=== PATIENT | female | born 1940 | race Two or more races ===

== ENCOUNTER 2024-11-03 16:56 | Inpatient (IN) | payer OTHER, MEDICAID ==
[~2024-11-03] VITALS: Ht 167.6 cm; Wt 72.7 kg
--- NOTE | 2024-11-03 17:23 | ED.PDOC ---
History of present illness HPI Comments 84 y.o female with PMhx of dementia, presents to the ED via EMS for an evaluation of hypoglycemia. EMS reports family on scene noted patient to be lethargic, tested her glucose which read 29, gave her juice and called 911. EMS reports on scene, glucose read 52, gave patient oral glucose which level remained at 50. EMS then administrated 250mL of D10 en route and now presents to the ED with glucose of 126. Patient's baseline is alert and oriented x3. EMS reports patient was more talkative on scene per EMS, slurred speech due to weakness but upon ED arrival, is not answering many questions and mumbling. Chief Complaint: Hypoglycemia Time Seen by MD: 17:17 History of present illness: Nurses Notes, Payroll And Benefits Specialist Notes, Medications, Allergies Allergies: Coded Allergies: NO KNOWN ALLERGIES (Unverified , 11/03/24) Information Source: Emergency Med Personnel Mode of Arrival: EMS Timing: Hours Duration: Since onset Prehospital treatment: Accucheck, Treatment [place]: Slurred speech Symptoms: Confusion Modifying factors: Nothing Associated signs and symptoms: None Past Medical History PAST MEDICAL HISTORY: Denies Surgical History: Denies all surgeries TRACTOR SWEEPER OPERATOR History: No Pertinent TRACTOR SWEEPER OPERATOR History Family History Family History: Reviewed,noncontributory to illness, No family hx of Cancer, No family hx of DM, No family hx of Heart jero, No family hx of HTN, No family hx ofKidney jero, No family hx of Liver jero, No family hx of Lung jero, No family hx of Stroke Social History Smoker: Non-Smoker Alcohol: Denies ETOH Use Drugs: Denies Drug Use Lives In: Home Constitutional: denies: chills, diaphoresis, fatigue, fever, malaise, sweats, weakness, others EENTM: denies: blurred vision, double vision, ear bleeding, ear discharge, ear drainage, ear pain, ear ringing, eye pain, eye redness, hearing loss, mouth pain, mouth swelling, nasal discharge, nose bleeding, nose congestion, nose pain, photophobia, tearing, throat pain, throat swelling, voice changes, others Respiratory: denies: cough, hemoptysis, orthopnea, SOB at rest, shortness of breath, SOB with excertion, stridor, wheezing, others Cardiovascular: denies: chest pain, dizzy spells, diaphoresis, Dyspnea on exertion, edema, irregular heart beat, left arm pain, lightheadedness, palpitations, PND, syncope, others Gastrointestinal: denies: abdomen distended, abdominal pain, blood streaked bowels, constipated, diarrhea, dysphagia, difficulty swallowing, hematemesis, melena, nausea, poor appetite, poor fluid intake, rectal bleeding, rectal pain, vomiting, others Genitourinary: denies: abnormal vagina bleeding, burning, dyspareunia, dysuria, flank pain, frequency, hematuria, incontinence, pain, , vagina discharge, urgency, others Neurological: denies: dizziness, fainting, headache, left sided numbness, left sided weakness, numbness, paresthesia, pre-existing deficit, right sided nu mbness, right sided weakness, seizure, speech problems, tingling, tremors, weakness, others Musculoskeletal: denies: back pain, gout, joint pain, joint swelling, muscle pain, muscle stiffness, neck pain, others Integumetry: denies: bruises, change in color, change in hair/nails, dryness, laceration, lesions, lumps, rash, wounds, others Allergic/Immunocompromised: denies: Difficulty Healing, Frequent Infections, Hives, Itching, others Hematologic/Lymphatic: denies: anemia, blood clots, easy bleeding, easy bruising, swollen glands, others Endocrine: denies: excessive hunger, excessive sweating, excessive thirst, excessive urination, flushing, intolerance to cold, intolerance to heat, unexplained weight gain, unexplained weight loss, others Psychiatric: denies: anxiety, bipolar disorder, depression, hopeless, panic disorder, schizophrenia, sleepless, suicidal, others All Other Systems: Reviewed and Negative Physical Exam General Appearance: Moderate Distress HEENT: Normal ENT Inspection, Pharynx Normal Neck: Full Range of Motion, Non-Tender, Normal, Normal Inspection Respiratory: Chest Non-Tender, Lungs Clear, No Accessory Muscle Use, No R espiratory Distress, Normal Breath Sounds Cardiovascular: No Edema, No JVD, No Murmur, No Gallop, Normal Peripheral Pulses, Regular Rate/Rhythm Breast Exam: Deferred Gastrointestinal: No Organomegaly, Non Tender, No Pulsatile Mass, Normal Bowel Sounds, Soft Genitalia: Deferred Pelvic: Deferred Rectal: Deferred Extremities: No calf tenderness, Normal capillary refill, Normal inspection, Normal range of motion, Non-tender, No pedal edema Neurologic: Alert, dietitian teaching II-XII nml as Tested, No Motor Deficits Cerebellar Function: NOT DONE Reflexes: NOT DONE Skin: Dry, Normal Color, Warm Lymphatic: NOT DONE Was a procedure done? Was a procedure done?: No Differential Diagnosis (DM) Differential Diagnosis: Dehydration, Electrolyte Abnormality, Hypoglycemia X-Ray, Labs, Meds, VS Vital Signs Date Time Temp Pulse Resp B/P (MAP) Pulse Ox O2 Delivery O2 Flow Rate FiO2 11/03/24 18:28 Room Air* 0 21 11/03/24 18:00 97.3 77 16 168/52 (90) 93 97.3 11/03/24 17:00 97.9 81 18 134/75 (94) 98 Lab Test 11/03/24 19:32 11/03/24 19:28 11/03/24 18:50 11/03/24 17:57 Range/Units Troponin I High Sensitivity Pending POC Glucose 81 106 70-106 mg/dl Urine Color Light-orange Yellow Urine Clarity Turbid H Clear Urine pH 6.5 5.0-9.0 Urine Specific [place] 1.013 1.001-1.035 Urine Protein 1+ H Negative Urine Ketones Negative Negative Urine Blood Negative Negative /uL Urine Nitrite Negative Negative Urine Bilirubin Negative Negative Urine Urobilinogen Normal Negative mg/dL Urine Leukocyte Esterase 3+ Negative /uL Urine RBC 1 0 - 4 /hpf Urine WBC 209 0 - 5 /hpf Urine WBC Clumps Present None Seen /hpf Urine Squamous Epithelial Cells Few <5 /hpf Urine Bacteria Few H None Seen /hpf Urine Hyaline Casts Few 0 - 2 /lpf Urine Glucose Normal Normal mg/dL Test 11/03/24 17:39 Range/Units White Blood Count 13.6 H 4.4-10.8 10^3/uL Red Blood Count 5.01 4.0-5.20 10^6/uL Hemoglobin 14.6 12.2-16.2 g/dL Hematocrit 44.6 36.0-46.0 % Mean Corpuscular Volume 89.2 80.0-100.0 fL Mean Corpuscular Hemoglobin 29.1 28.0-32.0 pg Mean Corpuscular Hemoglobin Concent 32.6 32.0-36.0 g/dL Red Cell Distribution Width 15.3 H 11.8-14.3 % Platelet Count 215 140-450 10^3/uL Mean Platelet Volume 8.2 6.9-10.8 fL Neutrophils (%) (Auto) 80.7 H 37.0-80.0 % Lymphocytes (%) (Auto) 4.5 L 10.0-50.0 % Monocytes (%) (Auto) 13.9 H 0.0-12.0 % Eosinophils (%) (Auto) 0.3 0.0-7.0 % Basophils (%) (Auto) 0.6 0.0-2.0 % Neutrophils # (Auto) 10.9 H 1.6-8.6 10 ^3/uL Lymphocytes # (Auto) 0.6 0.4-5.4 10 ^3/uL Monocytes # (Auto) 1.9 H 0-1.3 10 ^3/uL Eosinophils # (Auto) 0 0-0.8 10 ^3/uL Basophils # (Auto) 0.1 0-0.2 10 ^3/uL Nucleated Red Blood Cells 0.1 % Prothrombin Time 12.1 H 9.3-11.8 sec Prothrombin Time INR 1.16 H 0.9-1.15 Activated Partial Thromboplast Time 29.3 24.5-34.5 SEC D-Dimer, Quantitative 0.47 0.0-0.49 mg/L FEU Sodium Level 140 136-145 mmol/L Potassium Level 2.6 L 3.5-5.1 mmol/L Chloride Level 103 98-107 mmol/L Carbon Dioxide Level 29 20-31 mmol/L Anion Gap 8 5-15 Blood Urea Nitrogen 9 9-23 mg/dL Creatinine 0.79 0.550-1.02 mg/dL Glomerular Filtration Rate Calc 74 >90 mL/min BUN/Creatinine Ratio 11.4 10.0-20.0 Serum Glucose 122 H 74-106 mg/dL Calcium Level 11.3 H 8.7-10.4 mg/dL Magnesium Level 1.5 L 1.6-2.6 mg/dL Total Bilirubin 0.8 0.2-1.0 mg/dL Aspartate Amino Transferase (AST) 20 13-40 U/L Alanine Aminotransferase (ALT) < 9 7-40 U/L Alkaline Phosphatase 100 46-116 U/L Troponin I High Sensitivity 15 </=34 ng/L B-Type Natriuretic Peptide 45.72 0-100 pg/mL Total Protein 6.6 5.7-8.2 g/dL Albumin 4.1 3.2-4.8 g/dL Current Medications Medications (Trade) Dose Ordered Sig/Evelyn Route Start Time Stop Time Status Last Admin Dextrose/Lactated Ringer's 1,000 ml @ 75 mls/hr [id number] ONCE IV 11/03/24 17:30 11/04/24 06:49 11/03/24 18:00 X-Ray, Labs, Meds, VS Comment This 84-year-old female was sent to our hospital via EMS secondary to being altered. Family noted the patient had a blood glucose of 29. She had provided with glucose in the field with improvement of symptoms. Here, her she had became hypersomnolent provide more glucose. Her workup and he was significant only for chronic appearing ischemic changes on CT, and hypoglycemia. She was placed on a D5 drip at 75 cc/hour monitored. However, secondary to altered mental status, hypoglycemia, she will be admitted for further workup and management. Time of 1ST Reevaluation: 17:08 Reevaluation 1ST: Unchanged Patient Education/Counseling: Diagnosis, Treatment, Prognosis Family Education/Counseling: No Family Present Departure 1 Departure Time of Disposition: 19:52 Impression: Primary Impression: Altered mental status Additional Impression: Hypoglycemia Disposition: ADMITTED INPATIENT Condition: Serious Critical Care Note Critical Care Time?: No Stability Stability form required: No I personally scribed for JAIDA KHAN MD ([email or web address]) on 11/03/24 at 17:23. E lectronically submitted by Christy Finnegan ([facility]). I personally scribed for JAIDA KHAN MD ([email or web address]) on 11/03/24 at 17:26. Elect ronically submitted by Christy Finnegan ([facility]). JAIDA KHAN MD Nov 03, 2024 17:23
[2024-11-03 17:47] LABS: Basophils # (auto) 0.1 10 ^3/uL (0-0.2); Basophils % (auto) 0.6 % (0.0-2.0); Eosinophils # (auto) 0 10 ^3/uL (0-0.8); Eosinophils % (auto) 0.3 % (0.0-7.0); Hematocrit 44.6 % (36.0-46.0); Hemoglobin 14.6 g/dL (12.2-16.2); Lymphocytes # (auto) 0.6 10 ^3/uL (0.4-5.4); Lymphocytes % (auto) 4.5 % (10.0-50.0); Mean Corpuscular Hemoglobin 29.1 pg (28.0-32.0); Mean Corpuscular Hgb Conc. 32.6 g/dL (32.0-36.0); Mean Corpuscular Volume 89.2 fL (80.0-100.0); Monocytes # (auto) 1.9 10 ^3/uL (0-1.3); Monocytes % (auto) 13.9 % (0.0-12.0); Neutrophils # (auto) 10.9 10 ^3/uL (1.6-8.6); Neutrophils % (auto) 80.7 % (37.0-80.0); Nucleated Red Blood Cells % 0.1 %; Platelet Count (auto) 215 10^3/uL (140-450); Red Blood Cells 5.01 10^6/uL (4.0-5.20); Red Cell Distribution Width 15.3 % (11.8-14.3); White Blood Cell 13.6 10^3/uL (4.4-10.8)
[2024-11-03] MEDS: D5W/LACTATED RINGERS 1,000 ML IV ONE (18:00)
[2024-11-03 18:07] LABS: Albumin 4.1 g/dL (3.2-4.8); Alkaline Phosphatase 100 U/L (46-116); Anion Gap 8 (5-15); Aspartate Aminotransferase 20 U/L (13-40); BUN/Creatinine Ratio 11.4 (10.0-20.0); Bilirubin, Total 0.8 mg/dL (0.2-1.0); Carbon Dioxide 29 mmol/L (20-31); Chloride 103 mmol/L (98-107); Sodium 140 mmol/L (136-145); Total Protein 6.6 g/dL (5.7-8.2)
[2024-11-03 18:08] LABS: Alanine Aminotransferase < 9 U/L (7-40); Blood Urea Nitrogen 9 mg/dL (9-23); Calcium 11.3 mg/dL (8.7-10.4); Glucose 122 mg/dL (74-106); Magnesium 1.5 mg/dL (1.6-2.6); Potassium 2.6 mmol/L (3.5-5.1)
[2024-11-03 18:12] LABS: INR 1.16 (0.9-1.15); Partial Thromboplastin Time 29.3 SEC (24.5-34.5); Prothrombin Time 12.1 sec (9.3-11.8)
--- NOTE | 2024-11-03 18:30 | DVH ---
EXAM: CT HEAD WITHOUT CONTRAST INDICATION: aloc TECHNIQUE: CT of the head without intravenous contrast. Radiation Dose Information: CT Dose: CTDI volume is 54.83 mGy. Dose-length product is 878.97 mGy*cm The dose indicators for CT are the volume Computed Tomography (CT) Dose Index (CTDIvol) and the Dose Length Product (DLP), and are measured in units of mGy and mGy-cm, respectively. These indicators are not patient dose, but values generated from the CT scanner acquisition factors. The report includes radiation exposure data for exposures received during this examination. COMPARISON: None FINDINGS: There is no evidence of acute intracranial hemorrhage, extra-axial collection, mass effect, midline s hift, herniation or hydrocephalus. Small 6-7 mm low-density area in the deep white matter of the right frontal lobe 9 mm low-density are a in the deep white matter in the left parietal lobe. These may represent old areas of ischemia. Cons ider follow-up with MRI. The ventricles, sulci and cisterns are age appropriate. The rothman-white differentiation is intact. Patchy periventricular and subcortical white matter hypoattenuation is nonspecific but may be related to small vessel ischemic disease. Small area of mucosal thickening left maxillary sinus. The mastoid air cells are clear. The surrounding soft tissues and osseous structures are unremarkable. IMPRESSION: 1. No acute intracranial hemorrhage. 2. Bilateral small areas of ischemia in the deep white matter consider follow-up with MRI. HS:Y
--- NOTE | 2024-11-03 18:44 | DVH ---
CHEST RADIOGRAPH Indication: aloc Technique: Single frontal view of the chest was obtained COMPARISON: None FINDINGS: Lines and Tubes: None Lungs: Clear Pleura: No effusion. No pneumothorax. Cardiomediastinal contours: Cardiomegaly Bones: Unremarkable IMPRESSION: Cardiomegaly
[2024-11-03 19:00] LABS: Urine Bacteria FEW /hpf (None Seen); Urine Blood Negative /uL (Negative); Urine Clarity Turbid (Clear); Urine Color Light-Orange (Yellow); Urine Hyaline Cast FEW /lpf (0 - 2); Urine Protein, UAD 1+ (Negative); Urine Specific Gravity 1.013 (1.001-1.035); Urine Squamous Epithelial Cell FEW /hpf (<5); Urine Urobilinogen Normal (Negative); Urine WBC 209 /hpf (0 - 5); Urine WBC Clumps PRESENT /hpf (None Seen); Urine pH 6.5 (5.0-9.0)
[2024-11-03 19:30] VITALS: PULSE 72; RESP 17; O2SAT 93
[2024-11-03] MEDS: ACCU-CHEK COMFORT CURVE STRIP VI ONE (20:57)
[2024-11-03] MEDS: DEXTROSE (50%) 50ML SYRG IV ONE (21:15)
[2024-11-03] MEDS ORDERED: DEXTROSE (50%) 50ML SYRG IV PRN (21:30)
[2024-11-03] MEDS ORDERED: ACETAMINOPHEN 325 MG TAB PO PRN (21:30)
--- NOTE | 2024-11-03 21:51 | DVHHP2 ---
History of Present Illness Reason for Visit: Altered mental status History of Present Illness 84-year-old female presents evaluation altered mental status. Patient was noted to be progressively more confused by caregiver today. When they checked her blood sugar it was reading 29. Patient does have history of dementia and can not provide history of events. Patient is lethargic. No complaints of shortness for breath or chest pain. Past Medical History Diabetes mellitus and dementia Past Surgical History None Family History Noncontributory Smoke: No ALCOHOL: none Drugs: None Review of Systems Review of Systems Review of systems are limited due to the patient's altered mental status. Allergies: Coded Allergies: NO KNOWN ALLERGIES (Unverified , 11/03/24) Medications Current Medications Medications Dose Ordered Sig/Evelyn Route Start Time Stop Time Status Last Admin Dose Admin Potassium Chloride 100 ml @ 50 mls/hr Q2H IV 11/03/24 20:45 11/04/24 00:44 Lisinopril 10 mg DAILY PO 11/04/24 10:00 UNV Ceftriaxone Sodium 50 ml @ 100 mls/hr DAILY@09 IV 11/04/24 09:00 UNV Magnesium Sulfate/ Dextrose 100 ml @ 100 mls/hr Q1H IV 11/03/24 21:30 11/03/24 23:29 UNV Diagnostic Test (Pha) 1 strip IQ4HR 11/04/24 00:00 UNV Insulin Human Regular IQ4HR SC 11/04/24 00:00 UNV Dextrose 50 ml UD PRN IV 11/03/24 21:30 UNV Ondansetron HCl 4 mg Q4HP PRN IV 11/03/24 21:30 UNV Enoxaparin Sodium 40 mg DAILY SC 11/04/24 10:00 UNV Acetaminophen 650 mg Q6HP PRN PO 11/03/24 21:30 UNV Exam Vital Signs Vital Signs Date Time Temp Pulse Resp B/P (MAP) Pulse Ox O2 Delivery O2 Flow Rate FiO2 11/03/24 18:28 Room Air* 0 21 11/03/24 18:00 97.3 77 16 168/52 (90) 93 97.3 Exam Gen: 84-year-old female in mild distress. Skin: Warm, dry, normal color and texture, no rash. HEENT: Normocephalic atraumatic, mucous membranes moist and pink. Neck: Cervical and supraclavicular nodes normal without enlargement, trachea is midline, thyroid gland is normal without masses. Pulmonary: Clear to auscultation and percussion bilaterally. Cardiac: Regular rate and rhythm. No murmur Abdomen: Soft, nontender, nondistended, bowel sounds present all 4 quadrants, no guarding, no rigidity, no organomegaly. Extremities: No cyanosis, clubbing, no edema Neuro: Cranial nerves II through XII grossly intact, normal affect and speech, no focal motor deficits. Labs/Xrays ORDERING PHYSICIAN: JAIDA KHAN MD PROCEDURE(s): CXRP - CHEST PORTABLE REASON: aloc ORDER NUMBER(s): [id number], ACCESSION NUMBER(s): [id number] CHEST RADIOGRAPH Indication: aloc Technique: Single frontal view of the chest was obtained COMPARISON: None FINDINGS: Lines and Tubes: None Lungs: Clear Pleura: No effusion. No pneumothorax. Cardiomediastinal contours: Cardiomegaly Bones: Unremarkable IMPRESSION: Cardiomegaly RING PHYSICIAN: JAIDA KHAN MD PROCEDURE(s): HWOCT - HEAD WITHOUT CONTRAST REASON: aloc ORDER NUMBER(s): [id number], ACCESSION NUMBER(s): [id number] EXAM: CT HEAD WITHOUT CONTRAST INDICATION: aloc TECHNIQUE: CT of the head without intravenous contrast. Radiation Dose Information: CT Dose: CTDI volume is 54.83 mGy. Dose-length product is 878.97 mGy*cm The dose indicators for CT are the volume Computed Tomography (CT) Dose Index (CTDIvol) and the Dose Length Product (DLP), and are measured in units of mGy and mGy-cm, respectively. These indicators are not patient dose, but values generated from the CT scanner acquisition factors. The report includes radiation exposure data for exposures received during this examination. COMPARISON: None FINDINGS: There is no evidence of acute intracranial hemorrhage, extra-axial collection, mass effect, midline shift, herniation or hydrocephalus. Small 6-7 mm low-density area in the deep white matter of the right frontal lobe 9 mm low-density area in the deep white matter in the left parietal lobe. These may represent old areas of ischemia. Consider follow-up with MRI. The ventricles, sulci and cisterns are age appropriate. The rothman-white differentiation is intact. Patchy periventricular and subcortical white matter hypoattenuation is nonspecific but may be related to small vessel ischemic disease. Small area of mucosal thickening left maxillary sinus. The mastoid air cells are clear. The surrounding soft tissues and osseous structures are unremarkable. IMPRESSION: 1. No acute intracranial hemorrhage. 2. Bilateral small areas of ischemia in the deep white matter consider follow-up with MRI. HS:Y ATED BY: SHYAM HERNÁNDEZ Jr., DO DICTATED DATE/TIME: 11/03/24 1828 Labs Test 11/03/24 20:56 11/03/24 20:41 11/03/24 18:50 11/03/24 17:39 Range/Units POC Glucose 67 L 70-106 mg/dl Potassium Level 2.6 L 3.5-5.1 mmol/L Troponin I High Sensitivity 18 </=34 ng/L Urine Color Light-orange Yellow Urine Clarity Turbid H Clear Urine pH 6.5 5.0-9.0 Urine Specific [place] 1.013 1.001-1.035 Urine Protein 1+ H Negative Urine Ketones Negative Negative Urine Blood Negative Negative /uL Urine Nitrite Negative Negative Urine Bilirubin Negative Negative Urine Urobilinogen Normal Negative mg/dL Urine Leukocyte Esterase 3+ Negative /uL Urine RBC 1 0 - 4 /hpf Urine WBC 209 0 - 5 /hpf Urine WBC Clumps Present None Seen /hpf Urine Squamous Epithelial Cells Few <5 /hpf Urine Bacteria Few H None Seen /hpf Urine Hyaline Casts Few 0 - 2 /lpf Urine Glucose Normal Normal mg/dL White Blood Count 13.6 H 4.4-10.8 10^3/uL Red Blood Count 5.01 4.0-5.20 10^6/uL Hemoglobin 14.6 12.2-16.2 g/dL Hematocrit 44.6 36.0-46.0 % Mean Corpuscular Volume 89.2 80.0-100.0 fL Mean Corpuscular Hemoglobin 29.1 28.0-32.0 pg Mean Corpuscular Hemoglobin Concent 32.6 32.0-36.0 g/dL Red Cell Distribution Width 15.3 H 11.8-14.3 % Platelet Count 215 140-450 10^3/uL Mean Platelet Volume 8.2 6.9-10.8 fL Neutrophils (%) (Auto) 80.7 H 37.0-80.0 % Lymphocytes (%) (Auto) 4.5 L 10.0-50.0 % Monocytes (%) (Auto) 13.9 H 0.0-12.0 % Eosinophils (%) (Auto) 0.3 0.0-7.0 % Basophils (%) (Auto) 0.6 0.0-2.0 % Neutrophils # (Auto) 10.9 H 1.6-8.6 10 ^3/uL Lymphocytes # (Auto) 0.6 0.4-5.4 10 ^3/uL Monocytes # (Auto) 1.9 H 0-1.3 10 ^3/uL Eosinophils # (Auto) 0 0-0.8 10 ^3/uL Basophils # (Auto) 0.1 0-0.2 10 ^3/uL Nucleated Red Blood Cells 0.1 % Prothrombin Time 12.1 H 9.3-11.8 sec Prothrombin Time INR 1.16 H 0.9-1.15 Activated Partial Thromboplast Time 29.3 24.5-34.5 SEC D-Dimer, Quantitative 0.47 0.0-0.49 mg/L FEU Sodium Level 140 136-145 mmol/L Chloride Level 103 98-107 mmol/L Carbon Dioxide Level 29 20-31 mmol/L Anion Gap 8 5-15 Blood Urea Nitrogen 9 9-23 mg/dL Creatinine 0.79 0.550-1.02 mg/dL Glomerular Filtration Rate Calc 74 >90 mL/min BUN/Creatinine Ratio 11.4 10.0-20.0 Serum Glucose 122 H 74-106 mg/dL Calcium Level 11.3 H 8.7-10.4 mg/dL Magnesium Level 1.5 L 1.6-2.6 mg/dL Total Bilirubin 0.8 0.2-1.0 mg/dL Aspartate Amino Transferase (AST) 20 13-40 U/L Alanine Aminotransferase (ALT) < 9 7-40 U/L Alkaline Phosphatase 100 46-116 U/L B-Type Natriuretic Peptide 45.72 0-100 pg/mL Total Protein 6.6 5.7-8.2 g/dL Albumin 4.1 3.2-4.8 g/dL Assessment/Plan Assessment/Plan Assessment Metabolic encephalopathy Urinary tract infection Hypoglycemia Electrolyte imbalance Dementia Plan Admit the patient to Med surge to hospitalist Maintenance IV fluids Q.4 hour Accu-Cheks Replete electrolytes Rocephin Continue treatment per orders Plan discussed with: Patient My Orders Orders - CHRIS GARCIA Procedure Category Date Status Time Consistent DIET 11/04/24 Transmitted Carb(Ccho)Diabetes Breakfast Lisinopril Tablet PHA 11/04/24 In Process (Zestril Tablet) 10:00 Ceftriaxone 1gm/50ml PHA 11/04/24 In Process D5w (Rocephin) 21:00 Ceftriaxone 1gm/50ml PHA 11/03/24 In Process D5w (Rocephin) 21:30 Urine Bacterial TIFFANIE 11/03/24 Logged Culture 21:27 Magnesium Sulfate PHA 11/03/24 In Process 1gm/100ml 21:30 Basic Metabolic Panel LAB 11/04/24 Verified 04:00 Glucose Blood PHA 11/04/24 In Process (Accu-Chek Comfort 00:00 Insulin R (Human) PHA 11/04/24 In Process (Insulin R) 00:00 Dextrose 50% Syringe PHA 11/03/24 In Process 21:30 Admit ADMIT 11/03/24 Transmitted 21:27 Ondansetron Hcl PHA 11/03/24 In Process (Zofran) 21:30 Enoxaparin Sodium PHA 11/04/24 In Process (Lovenox) 10:00 Complete Blood Count LAB 11/04/24 Verified 04:00 Cardiac DIET 11/04/24 Transmitted Diet-2gna,Lofat,Lochol Breakfast Condition: Stable LAURA 11/03/24 In Process 21:27 Acetaminophen Tablet PHA 11/03/24 In Process (Tylenol Tablet) 21:30 Maintain Bed Rest LAURA 11/03/24 In Process 21:27 Sequential LAURA 11/03/24 In Process Compression Device Date of Service: Nov 03, 2024 Billing Provider: CHRIS GARCIA Common Visit Codes: [id number] INP/OBS CARE (HIGH) CHRIS GARCIA Nov 03, 2024 21:51
[2024-11-03] MEDS: cefTRIAXone 1GM/50ML D5W 50 ML IV ONE (21:57)
[2024-11-03] MEDS: POTASSIUM CHL 20MEQ/100ML 100 ML IV SCH (22:30)
[2024-11-03] MEDS: DEXTROSE 10% 1,000 ML IV ONE (22:30)
[2024-11-03 23:45] VITALS: BP 185/71; PULSE 73; RESP 18; TEMP 99.2; O2SAT 97
[2024-11-03] MEDS ORDERED: FOLI-119 PO (23:57)
[2024-11-03] MEDS ORDERED: GABA-339 PO (23:57)
[2024-11-03] MEDS ORDERED: PROBTAB12 PO (23:57)
[2024-11-03] MEDS ORDERED: ATOR10TA52 PO (23:57)
[2024-11-03] MEDS ORDERED: INSUINJ37 SC (23:57)
[2024-11-03] MEDS ORDERED: INSU100I54 SC (23:57)
[2024-11-03] MEDS ORDERED: GAB100C PO (23:57)
[2024-11-03] MEDS ORDERED: PERCOT PO (23:57)
[2024-11-03] MEDS ORDERED: DONE1TAB88 PO (23:57)
[2024-11-03] MEDS ORDERED: IBAN1TAB2 PO (23:57)
[2024-11-03] MEDS ORDERED: CARB25TA77 PO (23:57)
[2024-11-03] MEDS ORDERED: MEMA1TAB3 PO (23:57)
[2024-11-03] MEDS ORDERED: AMLO1TAB23 PO (23:57)
[2024-11-03] MEDS ORDERED: OMEP-448 PO (23:57)
[2024-11-03] MEDS ORDERED: SUCR1TAB PO (23:57)
[2024-11-03] MEDS ORDERED: LISI20TA56 PO (23:57)
[2024-11-03] MEDS ORDERED: HYDR25TA87 PO (23:57)
[2024-11-03] MEDS ORDERED: SERT-206 PO (23:57)
[2024-11-04] VITALS (10 sets, daily range): BP systolic 136–167; BP diastolic 52–77; PULSE 69–81; RESP 16–20; TEMP 97.9–99.3; O2SAT 90–98
[2024-11-04] MEDS: ACCU-CHEK COMFORT CURVE STRIP VI SCH ×2 (00:05→11:30)
[2024-11-04] MEDS: MAGNESIUM SULFATE 1GM/100ML 100 ML IV SCH (02:39)
[2024-11-04] MEDS: OXYCODONE W/ ACETAMINOPHEN 5/325MG TABLET PO PRN (06:30)
[2024-11-04 07:10] LABS: Chloride 104 mmol/L (98-107); Sodium 139 mmol/L (136-145)
[2024-11-04 07:11] LABS: Anion Gap 7 (5-15); Carbon Dioxide 28 mmol/L (20-31)
[2024-11-04 07:12] LABS: Basophils # (auto) 0.1 10 ^3/uL (0-0.2); Basophils % (auto) 0.6 % (0.0-2.0); Eosinophils # (auto) 0.1 10 ^3/uL (0-0.8); Eosinophils % (auto) 0.6 % (0.0-7.0); Hematocrit 39.5 % (36.0-46.0); Hemoglobin 13.4 g/dL (12.2-16.2); Lymphocytes # (auto) 1.1 10 ^3/uL (0.4-5.4); Lymphocytes % (auto) 10.7 % (10.0-50.0); Mean Corpuscular Hemoglobin 30.2 pg (28.0-32.0); Monocytes # (auto) 1.5 10 ^3/uL (0-1.3); Monocytes % (auto) 15.1 % (0.0-12.0); Neutrophils # (auto) 7.4 10 ^3/uL (1.6-8.6); Platelet Count (auto) 212 10^3/uL (140-450); Red Blood Cells 4.44 10^6/uL (4.0-5.20); White Blood Cell 10.1 10^3/uL (4.4-10.8)
[2024-11-04 07:14] LABS: Calcium 10.7 mg/dL (8.7-10.4)
[2024-11-04 07:16] LABS: Potassium 2.5 mmol/L (3.5-5.1)
[2024-11-04 07:17] LABS: BUN/Creatinine Ratio 10.5 (10.0-20.0)
[2024-11-04 07:25] LABS: Blood Urea Nitrogen 8 mg/dL (9-23); Glucose 137 mg/dL (74-106)
[2024-11-04] MEDS: LISINOPRIL 5 MG TAB PO SCH (10:38)
[2024-11-04] MEDS: ENOXAPARIN SOD 40 MG/0.4 ML SYRINGE SC SCH (10:38)
--- NOTE | 2024-11-04 10:59 | DVHPN2 ---
Subjective 84-year-old female was admitted due to altered level of consciousness due to hypoglycemia and UTI She had a fracture of her left knee 2 months ago and was treated conservatively and she has been bed bound since then No complaints today Potassium is low Changes from previous H/P or p: Changes Objective Vitals Vital Signs Date Time Temp Pulse Resp B/P (MAP) Pulse Ox O2 Delivery O2 Flow Rate FiO2 11/04/24 10:38 150/51 11/04/24 05:00 99.3 80 16 93 99.3 11/04/24 00:15 Room Air* 0 21 Intake/Output Intake and Output 11/04/24 07:00 Intake Total 910 ml Balance 910 ml Intake Oral 160 ml IV Total 750 ml General Appearance: Alert, Oriented X3, Cooperative Lungs: Clear to auscultation, Normal air movement Cardiovascular: Regular rate, Normal S1 Abdomen: Normal bowel sounds, Soft, No tenderness Extremities: No edema Medications Current Medications Medications Dose Ordered Sig/Evelyn Route Start Time Stop Time Status Last Admin Dose Admin Lisinopril 10 mg DAILY PO 11/04/24 10:00 11/04/24 10:38 10 MG Ceftriaxone Sodium 50 ml @ 100 mls/hr DAILY@2100 IV 11/04/24 21:00 Diagnostic Test (Pha) 1 strip IQ4HR 11/04/24 00:00 11/04/24 08:00 1 STRIP Insulin Human Regular IQ4HR SC 11/04/24 00:00 11/04/24 10:02 2 UNITS Dextrose 50 ml UD PRN IV 11/03/24 21:30 Ondansetron HCl 4 mg Q4HP PRN IV 11/03/24 21:30 Enoxaparin Sodium 40 mg DAILY SC 11/04/24 10:00 11/04/24 10:38 40 MG Acetaminophen 650 mg Q6HP PRN PO 11/03/24 21:30 Oxycodone/ Acetaminophen 1 tab Q6HP PRN PO 11/04/24 06:15 11/04/24 06:30 1 TAB Laboratory Results Laboratory Tests 11/04/24 06:04 Chemistry Test 11/03/24 17:39 11/04/24 06:04 Albumin 4.1 g/dL (3.2-4.8) Calcium Level 11.3 mg/dL (8.7-10.4) H 10.7 mg/dL (8.7-10.4) H Magnesium Level 1.5 mg/dL (1.6-2.6) L Total Protein 6.6 g/dL (5.7-8.2) Coagulation Test 11/03/24 17:39 Prothrombin Time 12.1 sec (9.3-11.8) H Prothrombin Time INR 1.16 (0.9-1.15) H Activated Partial Thromboplast Time 29.3 SEC (24.5-34.5) D-Dimer, Quantitative 0.47 mg/L FEU (0.0-0.49) Cardiac Markers Test 11/03/24 17:39 B-Type Natriuretic Peptide 45.72 pg/mL (0-100) LFT Test 11/03/24 17:39 Alanine Aminotransferase (ALT) < 9 U/L (7-40) Alkaline Phosphatase 100 U/L (46-116) Aspartate Amino Transferase (AST) 20 U/L (13-40) Total Bilirubin 0.8 mg/dL (0.2-1.0) Urinalysis Test 11/03/24 18:50 Urine Color Light-orange (Yellow) Urine Clarity Turbid (Clear) H Urine pH 6.5 (5.0-9.0) Urine Specific [place] 1.013 (1.001-1.035) Urine Protein 1+ (Negative) H Urine Ketones Negative (Negative) Urine Blood Negative /uL (Negative) Urine Nitrite Negative (Negative) Urine Bilirubin Negative (Negative) Urine Urobilinogen Normal mg/dL (Negative) Urine Leukocyte Esterase 3+ /uL (Negative) Urine RBC 1 /hpf (0 - 4) Urine WBC 209 /hpf (0 - 5) Urine WBC Clumps Present /hpf (None Seen) Urine Squamous Epithelial Cells Few /hpf (<5) Urine Bacteria Few /hpf (None Seen) H Urine Hyaline Casts Few /lpf (0 - 2) Urine Glucose Normal mg/dL (Normal) Assessment/Plan Assessment/Plan Acute metabolic encephalopathy due to UTI UTI Hypokalemia Underlying dementia Type 2 diabetes Sepsis due to UTI Left tibia plateau fracture, treated conservatively with no surgery Bed bound x 2 months since then Plan 11/04/2024: Continue IV Rocephin Replace potassium Monitor the electrolytes daily Urine culture pending X-ray left knee Orthopedic consult Discussed with her daughter over the phone Full code Advance directives discussed with the daughter over the phone for 15 minute Plan discussed with: Patient My Orders Orders - SKYLAR MATSON MD Procedure Category Date Status Time Nutritional PHA 11/04/24 Verified Supplements (Glucerna 12:00 Potassium Effervesent PHA 11/04/24 Verified Tab (Klor-Con/Ef) 11:00 Date of Service: Nov 04, 2024 Billing Provider: SKYLAR MATSON MD Common Visit Codes: [id number] INP/OBS CARE(HIGH) Secondary Visit Codes: [id number] CARE PLAN 30 MINUTES SKYLAR MATSON MD Nov 04, 2024 10:59
[2024-11-04] MEDS: Glucerna Carbsteady SHAKE Vanilla 8oz PO SCH (12:00)
[2024-11-04] MEDS: InsuLIN REG 1unit/0.01ml Soln (100units/ml) SC SCH ×2 (13:45)
[2024-11-04] MEDS: POTASSIUM EFFERVESENT TAB 25 MEQ PO ONE (14:12)
--- NOTE | 2024-11-04 14:42 | DVH ---
CLINICAL INDICATION: Fx TECHNIQUE: 3 views of the left knee were performed. XY L KNEE 3V XRAY Comparison: Comparison is made with report of radiographs dated 09/10/2024, although those images wer e not made available on the pac system for viewing. FINDINGS/IMPRESSION: : 1. Depressed fracture of the left lateral tibial plateau. Recommend comparison with previous radiogra phs. 2. 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 3. Moderate to large joint effusion accumulates in the suprapatellar pouch. 4. Atherosclerotic calcifications posteriorly.
[2024-11-04 15:06] LABS: Chloride 104 mmol/L (98-107); Sodium 139 mmol/L (136-145)
[2024-11-04 15:07] LABS: Anion Gap 8 (5-15); Calcium 10.4 mg/dL (8.7-10.4); Carbon Dioxide 27 mmol/L (20-31)
[2024-11-04 15:12] LABS: BUN/Creatinine Ratio 8.3 (10.0-20.0)
[2024-11-04 15:13] LABS: Blood Urea Nitrogen 6 mg/dL (9-23); Glucose 171 mg/dL (74-106)
[2024-11-04 15:14] LABS: Potassium 2.5 mmol/L (3.5-5.1)
[2024-11-04] MEDS: ONDANSETRON HCL 4 MG/2 ML VIAL IV PRN (16:02)
[2024-11-04] MEDS: POTASSIUM CHL 20MEQ/100ML 100 ML IV SCH (19:07)
[2024-11-04] MEDS ORDERED: cefTRIAXone 1GM/50ML D5W 50 ML IV SCH (21:00)
[2024-11-04] MEDS: GABAPENTIN 300 MG CAP PO SCH (21:24)
[2024-11-04] MEDS: GABAPENTIN 100 MG CAP PO SCH (21:24)
[2024-11-04] MEDS: MEGESTROL ACETATE 20 MG TAB PO SCH (21:51)
[2024-11-05 01:00] VITALS: BP 165/61; PULSE 80; RESP 18; TEMP 98.8; O2SAT 90
[2024-11-05] MEDS: cefTRIAXone 1GM/50ML D5W 50 ML IV SCH (01:40)
[2024-11-05] MEDS: cloNIDine HCL 0.1 MG TAB PO ONE (02:43)
[2024-11-05 05:00] VITALS: BP 164/72; PULSE 79; RESP 18; TEMP 97.7; O2SAT 92
--- NOTE | 2024-11-05 08:42 | DVHPN2 ---
Subjective No new complaints Not eating Labs not done yet Changes from previous H/P or p: Changes Objective Vitals Vital Signs Date Time Temp Pulse Resp B/P (MAP) Pulse Ox O2 Delivery O2 Flow Rate FiO2 11/05/24 05:00 97.7 79 18 164/72 (102) 92 97.7 11/04/24 20:00 Room Air* 0 21 Intake/Output Intake and Output 11/05/24 07:00 Intake Total 825 ml Balance 825 ml Intake Oral 475 ml IV Total 350 ml # Voids 10 General Appearance: Alert, Oriented X3, Cooperative Lungs: Clear to auscultation, Normal air movement Cardiovascular: Regular rate, Normal S1 Abdomen: Normal bowel sounds, Soft, No tenderness Extremities: No edema Medications Current Medications Medications Dose Ordered Sig/Evelyn Route Start Time Stop Time Status Last Admin Dose Admin Lisinopril 10 mg DAILY PO 11/04/24 10:00 11/04/24 10:38 10 MG Dextrose 50 ml UD PRN IV 11/03/24 21:30 Ondansetron HCl 4 mg Q4HP PRN IV 11/03/24 21:30 11/04/24 16:02 4 MG Enoxaparin Sodium 40 mg DAILY SC 11/04/24 10:00 11/04/24 10:38 40 MG Acetaminophen 650 mg Q6HP PRN PO 11/03/24 21:30 Oxycodone/ Acetaminophen 1 tab Q6HP PRN PO 11/04/24 06:15 11/05/24 05:20 1 TAB Enteral Nutritional Formula 240 ml TIDWM PO 11/04/24 12:00 Diagnostic Test (Pha) 1 strip ACHS 11/04/24 11:30 11/05/24 05:34 1 STRIP Insulin Human Regular ACHS SC 11/04/24 11:30 11/05/24 05:34 3 UNITS Gabapentin 200 mg TID PO 11/04/24 22:00 11/05/24 05:20 200 MG Gabapentin 600 mg HS PO 11/04/24 22:00 11/04/24 21:24 600 MG Megestrol Acetate 40 mg BID PO 11/04/24 22:00 11/04/24 21:51 40 MG Ceftriaxone Sodium 50 ml @ 100 mls/hr DAILY@0100 IV 11/05/24 01:00 11/05/24 01:40 100 MLS/HR Laboratory Results Laboratory Tests 11/04/24 06:04 11/04/24 14:10 Chemistry Test 11/04/24 14:10 Calcium Level 10.4 mg/dL (8.7-10.4) Urinalysis Test 11/03/24 18:50 Urine Color Light-orange (Yellow) Urine Clarity Turbid (Clear) H Urine pH 6.5 (5.0-9.0) Urine Specific [place] 1.013 (1.001-1.035) Urine Protein 1+ (Negative) H Urine Ketones Negative (Negative) Urine Blood Negative /uL (Negative) Urine Nitrite Negative (Negative) Urine Bilirubin Negative (Negative) Urine Urobilinogen Normal mg/dL (Negative) Urine Leukocyte Esterase 3+ /uL (Negative) Urine RBC 1 /hpf (0 - 4) Urine WBC 209 /hpf (0 - 5) Urine WBC Clumps Present /hpf (None Seen) Urine Squamous Epithelial Cells Few /hpf (<5) Urine Bacteria Few /hpf (None Seen) H Urine Hyaline Casts Few /lpf (0 - 2) Urine Glucose Normal mg/dL (Normal) Assessment/Plan Assessment/Plan Acute metabolic encephalopathy due to UTI UTI Hypokalemia Underlying dementia Type 2 diabetes Sepsis due to UTI Left tibia plateau fracture, treated conservatively with no surgery Bed bound x 2 months since then Plan 11/04/2024: Continue IV Rocephin Replace potassium Monitor the electrolytes daily Urine culture pending X-ray left knee Orthopedic consult Discussed with her daughter over the phone Full code Advance directives discussed with the daughter over the phone for 15 minute 11/05/24: Get labs done Replace K+ and Mg as needed Ortho consult pending Rocephin Urine Cx Plan discussed with: Patient, Daughter, Other My Orders Orders - SKYLAR MATSON MD Procedure Category Date Status Time Nutritional PHA 11/04/24 In Process Supplements (Glucerna 12:00 Basic Metabolic Panel LAB 11/05/24 Logged 04:00 Magnesium LAB 11/05/24 Logged 04:00 L Knee 3v Xray XY 11/04/24 Resulted 11:03 * Orthopedic Consult CONS 11/04/24 Transmitted 11:03 Code Status CODE 11/04/24 Transmitted 11:06 Glucose Blood PHA 11/04/24 In Process (Accu-Chek Comfort 11:30 Insulin R (Human) PHA 11/04/24 In Process (Insulin R) 11:30 Gabapentin Capsule PHA 11/04/24 In Process (Neurontin Capsule) 22:00 Gabapentin Capsule PHA 11/04/24 In Process (Neurontin Capsule) 22:00 Megestrol Tablet PHA 11/04/24 In Process (Megace Tablet) 22:00 Date of Service: Nov 05, 2024 Billing Provider: SKYLAR MATSON MD Common Visit Codes: [id number] INP/OBS CARE(HIGH) SKYLAR MATSON MD Nov 05, 2024 08:42
[2024-11-05 09:06] VITALS: BP 140/96; PULSE 68; RESP 18; TEMP 97.8; O2SAT 100
[2024-11-05 10:52] LABS: Chloride 107 mmol/L (98-107); Potassium 3.9 mmol/L (3.5-5.1); Sodium 140 mmol/L (136-145)
[2024-11-05 10:53] LABS: Anion Gap 6 (5-15); Carbon Dioxide 27 mmol/L (20-31)
[2024-11-05 10:58] LABS: BUN/Creatinine Ratio 8.3 (10.0-20.0)
[2024-11-05 10:59] LABS: Magnesium 1.6 mg/dL (1.6-2.6)
[2024-11-05 11:03] LABS: Blood Urea Nitrogen 7 mg/dL (9-23); Calcium 10.6 mg/dL (8.7-10.4); Glucose 303 mg/dL (74-106)
[2024-11-05 13:00] VITALS: BP 132/56; PULSE 71; RESP 18; TEMP 98.1; O2SAT 99
[2024-11-05 17:00] VITALS: BP 152/54; PULSE 89; RESP 18; TEMP 98.8; O2SAT 96
[2024-11-05 22:00] VITALS: BP 136/59; PULSE 78; RESP 18; TEMP 97.7; O2SAT 94
[2024-11-06 01:00] VITALS: BP 160/47; PULSE 72; RESP 18; TEMP 98.3; O2SAT 93
[2024-11-06 05:00] VITALS: BP 159/62; PULSE 76; RESP 18; TEMP 98.3; O2SAT 91
[2024-11-06 06:53] LABS: Alanine Aminotransferase 11 U/L (7-40); Albumin 3.4 g/dL (3.2-4.8); Alkaline Phosphatase 79 U/L (46-116); Anion Gap 6 (5-15); BUN/Creatinine Ratio 11.8 (10.0-20.0); Blood Urea Nitrogen 9 mg/dL (9-23); Carbon Dioxide 29 mmol/L (20-31); Chloride 106 mmol/L (98-107); Magnesium 1.8 mg/dL (1.6-2.6); Sodium 141 mmol/L (136-145)
[2024-11-06 06:54] LABS: Bilirubin, Total 0.6 mg/dL (0.2-1.0); Total Protein 5.8 g/dL (5.7-8.2)
[2024-11-06 07:04] LABS: Aspartate Aminotransferase 12 U/L (13-40); Calcium 10.9 mg/dL (8.7-10.4); Glucose 247 mg/dL (74-106); Potassium 3.1 mmol/L (3.5-5.1)
--- NOTE | 2024-11-06 08:48 | DVHHP2 ---
History Allergies: Coded Allergies: NO KNOWN ALLERGIES (Unverified , 11/03/24) Chief Complaint: Orthopaedic consultation for evaluation of left knee pain and deformity, valgus Present Illness(Onset/Duration 85F, admitted 2 mo ago 09/10/24 for left knee pain , XR taken showed left knee lateral tibial plateau depressed fracture. Pt treated with knee immobilizer, no apparant ortho consultation, discharged to daughters home. Pt with progressive dementia, minimal ambulator prior to fall, non ambulator since fall 2 mo ago. Past Surgical History non contributory Physical Exam Skin left knee intact skin Extremities Left knee, presentins in knee immobilizer, exam out of brace shows skin intact, valgus alignment 20 deg, correctable to straight, pseudo instabilty secondary to collapse into lateral joint Vital Signs Vital Signs Date Time Temp Pulse Resp B/P (MAP) Pulse Ox O2 Delivery O2 Flow Rate FiO2 11/06/24 05:00 98.3 76 18 159/62 (94) 91 98.3 11/05/24 20:00 Room Air* 0 21 Impressions/Description XR 11/04/24 shows progressive lateral tibial plateau depression fracture, 2 cm, majority of joint surface Pt is not a surgical candidate, I recommmend an grain unloader machine brace, WBAT with FWW , full assist, clear for dc from ortho view, follow up ortho clinic 1 mo with xrays left knee Plan Machine Stemmer brace, WBAT with FWW, full assist left knee Basis 1) 85 with poor bone quality 2) NWB for past 2 mo, with limited potential for future ambulation 2) dementia Follow up ortho clinic 1 mo, with XR left knee 3V SHYAM DELGADILLO MD Nov 06, 2024 08:48
--- NOTE | 2024-11-06 09:58 | DVHPN2 ---
Subjective No new complaints She is eating better Her potassium is better at 3.1 Orthopedic surgery has seen the patient recommended to conservative management with a brace and physical therapy and weight-bearing as tolerated Changes from previous H/P or p: Changes Objective Vitals Vital Signs Date Time Temp Pulse Resp B/P (MAP) Pulse Ox O2 Delivery O2 Flow Rate FiO2 11/06/24 09:26 113/83 11/06/24 05:00 98.3 76 18 91 98.3 11/05/24 20:00 Room Air* 0 21 Intake/Output Intake and Output 11/06/24 07:00 Intake Total 710 ml Output Total 200 ml Balance 510 ml Intake Oral 710 ml Output Urine Total 200 ml # Voids 7 # Bowel Movements 1 General Appearance: Alert, Oriented X3, Cooperative Lungs: Clear to auscultation, Normal air movement Cardiovascular: Regular rate, Normal S1 Abdomen: Normal bowel sounds, Soft, No tenderness Extremities: No edema Medications Current Medications Medications Dose Ordered Sig/Evelyn Route Start Time Stop Time Status Last Admin Dose Admin Lisinopril 10 mg DAILY PO 11/04/24 10:00 11/06/24 09:26 10 MG Dextrose 50 ml UD PRN IV 11/03/24 21:30 Ondansetron HCl 4 mg Q4HP PRN IV 11/03/24 21:30 11/04/24 16:02 4 MG Enoxaparin Sodium 40 mg DAILY SC 11/04/24 10:00 11/06/24 09:25 40 MG Acetaminophen 650 mg Q6HP PRN PO 11/03/24 21:30 Oxycodone/ Acetaminophen 1 tab Q6HP PRN PO 11/04/24 06:15 11/05/24 14:26 1 TAB Enteral Nutritional Formula 240 ml TIDWM PO 11/04/24 12:00 11/06/24 08:00 240 ML Diagnostic Test (Pha) 1 strip ACHS 11/04/24 11:30 11/06/24 05:58 1 STRIP Insulin Human Regular ACHS SC 11/04/24 11:30 11/06/24 05:58 4 UNITS Gabapentin 200 mg TID PO 11/04/24 22:00 11/06/24 05:13 200 MG Gabapentin 600 mg HS PO 11/04/24 22:00 11/05/24 21:48 600 MG Megestrol Acetate 40 mg BID PO 11/04/24 22:00 11/06/24 09:26 40 MG Ceftriaxone Sodium 50 ml @ 100 mls/hr DAILY@0100 IV 11/05/24 01:00 11/06/24 01:00 100 MLS/HR Laboratory Results Laboratory Tests 11/04/24 06:04 11/06/24 05:46 Chemistry Test 11/05/24 10:21 11/06/24 05:46 Calcium Level 10.6 mg/dL (8.7-10.4) H 10.9 mg/dL (8.7-10.4) H Magnesium Level 1.6 mg/dL (1.6-2.6) 1.8 mg/dL (1.6-2.6) Albumin 3.4 g/dL (3.2-4.8) Total Protein 5.8 g/dL (5.7-8.2) LFT Test 11/06/24 05:46 Alanine Aminotransferase (ALT) 11 U/L (7-40) Alkaline Phosphatase 79 U/L (46-116) Aspartate Amino Transferase (AST) 12 U/L (13-40) L Total Bilirubin 0.6 mg/dL (0.2-1.0) Urinalysis Test 11/03/24 18:50 Urine Color Light-orange (Yellow) Urine Clarity Turbid (Clear) H Urine pH 6.5 (5.0-9.0) Urine Specific [place] 1.013 (1.001-1.035) Urine Protein 1+ (Negative) H Urine Ketones Negative (Negative) Urine Blood Negative /uL (Negative) Urine Nitrite Negative (Negative) Urine Bilirubin Negative (Negative) Urine Urobilinogen Normal mg/dL (Negative) Urine Leukocyte Esterase 3+ /uL (Negative) Urine RBC 1 /hpf (0 - 4) Urine WBC 209 /hpf (0 - 5) Urine WBC Clumps Present /hpf (None Seen) Urine Squamous Epithelial Cells Few /hpf (<5) Urine Bacteria Few /hpf (None Seen) H Urine Hyaline Casts Few /lpf (0 - 2) Urine Glucose Normal mg/dL (Normal) Assessment/Plan Assessment/Plan Acute metabolic encephalopathy due to UTI UTI Hypokalemia Underlying dementia Type 2 diabetes Sepsis due to UTI Left tibia plateau fracture, treated conservatively with no surgery Bed bound x 2 months since then Plan 11/04/2024: Continue IV Rocephin Replace potassium Monitor the electrolytes daily Urine culture pending X-ray left knee Orthopedic consult Discussed with her daughter over the phone Full code Advance directives discussed with the daughter over the phone for 15 minute 11/05/24: Get labs done Replace K+ and Mg as needed Ortho consult pending Rocephin Urine Cx 11/06/2024: Order an seo coordinator brace for the left knee per orthopedic recommendation Order home health for physical therapy and occupational therapy Weight-bearing as tolerated Outpatient follow up with Orthopedic surgery Replace potassium Order physical therapy evaluation here Discharge planning for tomorrow Plan discussed with: Patient, Daughter My Orders Orders - SKYLAR MATSON MD Procedure Category Date Status Time * Trailer Chief CONS 11/06/24 Transmitted Consult Date of Service: Nov 06, 2024 Billing Provider: SKYLAR MATSON MD Common Visit Codes: [id number] INP/OBS CARE(HIGH) SKYLAR MATSON MD Nov 06, 2024 09:58
[2024-11-06] MEDS: POTASSIUM EFFERVESENT TAB 25 MEQ PO ONE (10:29)
[2024-11-06] MEDS: POTASSIUM CHL 20 Meq TABLET PO ONE (12:09)
[2024-11-06 13:51] VITALS: BP 118/85; PULSE 76; RESP 18; TEMP 98.5; O2SAT 94
[2024-11-06] MEDS ORDERED: CIPR-273 PO (15:49)
[2024-11-06 17:01] VITALS: BP 145/70; PULSE 80; RESP 18; TEMP 98.7; O2SAT 94
== END 2024-11-06 21:32 | disposition home health service (06) | DRG 871 ==
LOC: ER 16:56 → EDBD 16:56 → OVERFLOW 21:27 → CENTRAL 21:33
PROVIDERS: ADMIT Internal Medicine Geriatric Medicine; ATTEND Internal Medicine Geriatric Medicine
DX: A41.9 Sepsis, unspecified organism (principal); G93.41 Metabolic encephalopathy; N30.00 Acute cystitis without hematuria; E11.649 Type 2 diabetes mellitus with hypoglycemia without coma; F03.90 Unspecified dementia, unspecified severity, without behavioral disturbance, psychotic disturbance, mood disturbance, and anxiety; E87.6 Hypokalemia; Z74.01 Bed confinement status
CPT/HCPCS: 36415; 70450; 71045; 73562; 80048; 80053; 81001; 82962; 83735; 83880; 84132; 84484; 85025; 85379; 85610; 85730; 87086; 87088; 87186; 96365; 96375; 97163; G0378; J1815; J2405; J3480

== ENCOUNTER 2025-03-16 10:31 | Inpatient (IN) | payer OTHER, MEDICAID ==
[~2025-03-16] VITALS: Ht 167.6 cm; Wt 70.0 kg
[~2025-03-16 10:31] MED LIST: AMLO1TAB23 PO; ATOR10TA52 PO; CARB25TA77 PO; DONE1TAB88 PO; FOLI-119 PO; GAB100C PO; GABA-339 PO; HYDR25TA87 PO; IBAN1TAB2 PO; INSU100I54 SC; INSUINJ37 SC; LISI20TA56 PO; MEMA1TAB3 PO; OMEP-448 PO; PERCOT PO; PROBTAB12 PO; SERT-206 PO; SUCR1TAB PO
--- NOTE | 2025-03-16 10:49 | ED.PDOC ---
HPI (NEURO) HPI Comments 85y F who presents to the ED via EMS for chief complaint of generalized weakness. Per EMS, pt daughter called after noticing that pt was acting altered and not like herself and recently been dealing with UTI. Pt daughter did accu check and noted it was 33 and called EMS. EMS arrived and accu check was 28 and pt was given D10 and brought to the ED. Pt in the ED is ax0x1 and does not know why she is in the ED. Pt has noted history of dementia and recurrent UTI's but is currently not on medications. Pt otherwise denies any other symptoms at this time. Time Seen by MD: 10:45 Primary Care Provider: UNKNOWN Reviewed Notes: Rendering Equipment Tender Notes, Medications, Allergies (NKDA) Information Source: Patient, Emergency Med Personnel Mode of Arrival: EMS Brought in by: EMS Severity: Moderate Dizziness/Weakness Severity: Unable to do activities Headache Severity: None Timing: Hours Duration: Since onset Prehospital treatment: Treatment (D10) Onset: At rest Circumstances: Spontaneous Symptoms: None History of: DM, Hypertension, Other (AFIB) Modifying factors: Nothing Associated Signs and Symptoms: Weakness Past Medical History PAST MEDICAL HISTORY: AFIB, Cancer, Dementia, DM, High Lipids, HTN, MS Surgical History: Appendectomy, Cholecystectomy, Hysterectomy, Tonsillectomy WIRELESS CONSULTANT History: No Pertinent WIRELESS CONSULTANT History Family History Family History: Reviewed,noncontributory to illness, No family hx of Cancer, No family hx of DM, No family hx of Heart jero, No family hx of HTN, No family hx ofKidney jero, No family hx of Liver jreo, No family hx of Lung jero, No family hx of Stroke Social History Smoker: Non-Smoker Alcohol: Denies ETOH Use Drugs: Denies Drug Use Lives In: Home Constitutional: reports: malaise, weakness; denies: chills, diaphoresis, fatigue, fever, sweats, others EENTM: denies: blurred vision, double vision, ear bleeding, ear discharge, ear drainage, ear pain, ear ringing, eye pain, eye redness, hearing loss, mouth pain, mouth swelling, nasal discharge, nose bleeding, nose congestion, nose pain, photophobia, tearing, throat pain, throat swelling, voice changes, others Respiratory: denies: cough, hemoptysis, orthopnea, SOB at rest, shortness of breath, SOB with excertion, stridor, wheezing, others Cardiovascular: denies: chest pain, dizzy spells, diaphoresis, Dyspnea on exert ion, edema, irregular heart beat, left arm pain, lightheadedness, palpitations, PND, syncope, others Gastrointestinal: denies: abdomen distended, abdominal pain, blood streaked bowels, constipated, diarrhea, dysphagia, difficulty swallowing, hematemesis, melena, nausea, poor appetite, poor fluid intake, rectal bleeding, rectal pain, vomiting, others Genitourinary: denies: abnormal vagina bleeding, burning, dyspareunia, dysuria, flank pain, frequency, hematuria, incontinence, pain, , vagina discharge, urgency, others Neurological: denies: dizziness, fainting, headache, left sided numbness, left sided weakness, numbness, paresthesia, pre-existing deficit, right sided numbness, right sided weakness, seizure, speech problems, tingling, tremors, weakness, others Musculoskeletal: denies: back pain, gout, joint pain, joint swelling, muscle pain, muscle stiffness, neck pain, others Integumetry: denies: bruises, change in color, change in hair/nails, dryness, laceration, lesions, lumps, rash, wounds, others Allergic/Immunocompromised: denies: Difficulty Healing, Frequent Infections, Hives, Itching, others Hematologic/Lymphatic: denies: anemia, blood clots, easy bleeding, easy bruising, swollen glands, others Endocrine: denies: excessive hunger, excessive sweating, excessive thirst, excessive urination, flushing, intolerance to cold, intolerance to heat, unexplained weight gain, unexplained weight loss, others Psychiatric: denies: anxiety, bipolar disorder, depression, hopeless, panic disorder, schizophrenia, sleepless, suicidal, others Unable to Obtain due to: Altered Mental Status All Other Systems: Reviewed and Negative Physical Exam General Appearance: Moderate Distress HEENT: Normal ENT Inspection, Pharynx Normal, TMs Normal Neck: Full Range of Motion, Non-Tender, Normal, Normal Inspection Respiratory: Chest Non-Tender, Lungs Clear, No Accessory Muscle Use, No Respiratory Distress, Normal Breath Sounds Cardiovascular: No Edema, No JVD, No Murmur, No Gallop, Normal Peripheral Pulses, Regular Rate/Rhythm Breast Exam: Deferred Gastrointestinal: No Organomegaly, Non Tender, No Pulsatile Mass, Normal Bowel Sounds, Soft Genitalia: Deferred Pelvic: Deferred Rectal: Deferred Extremities: No calf tenderness, Normal capillary refill, Normal inspection, Normal range of motion, Non-tender, No pedal edema Musculoskeletal : Apperance: Normal Neurologic: Alert, accounting/finance tutor II-XII nml as Tested, Motor Weakness, No Sensory Deficits Cerebellar Function: Normal Reflexes: Normal Skin: Dry, Normal Color, Warm Lymphatic: No Adenopathy Was a procedure done? Was a procedure done?: No Differential Diagnosis (SZ) Seizure: N/A General Weakness: Anemia, Dehydration, Dysrhythmia, Electrolyte imbalance, Encephalopathy, Hypoglycemia, Hypovolemia, Myocardial infarction, TIA, Other (UTI, metabolic encephalopathy) X-Ray, Labs, Meds, VS Vital Signs Date Time Temp Pulse Resp B/P (MAP) Pulse Ox O2 Delivery O2 Flow Rate FiO2 03/16/25 13:38 98.2 63 16 113/78 (90) 95 98.2 03/16/25 13:38 64 16 95 Room Air* 0 21 03/16/25 13:06 67 03/16/25 10:44 98.8 62 16 137/83 (101) 97 98.8 Lab Test 03/16/25 12:01 03/16/25 11:09 03/16/25 11:08 Range/Units Lactic Acid Level 1.4 0.4-2.0 mmol/L White Blood Count 8.2 4.4-10.8 10^3/uL Red Blood Count 4.87 4.0-5.20 10^6/uL Hemoglobin 14.4 12.2-16.2 g/dL Hematocrit 43.3 36.0-46.0 % Mean Corpuscular Volume 88.8 80.0-100.0 fL Mean Corpuscular Hemoglobin 29.7 28.0-32.0 pg Mean Corpuscular Hemoglobin Concent 33.4 32.0-36.0 g/dL Red Cell Distribution Width 15.1 H 11.8-14.3 % Platelet Count 145 140-450 10^3/uL Mean Platelet Volume 9.2 6.9-10.8 fL Neutrophils (%) (Auto) 73.7 37.0-80.0 % Lymphocytes (%) (Auto) 12.5 10.0-50.0 % Monocytes (%) (Auto) 11.7 0.0-12.0 % Eosinophils (%) (Auto) 1.6 0.0-7.0 % Basophils (%) (Auto) 0.5 0.0-2.0 % Neutrophils # (Auto) 6.0 1.6-8.6 10 ^3/uL Lymphocytes # (Auto) 1.0 0.4-5.4 10 ^3/uL Monocytes # (Auto) 1.0 0-1.3 10 ^3/uL Eosinophils # (Auto) 0.1 0-0.8 10 ^3/uL Basophils # (Auto) 0 0-0.2 10 ^3/uL Nucleated Red Blood Cells 0.2 % Sodium Level 145 136-145 mmol/L Potassium Level 3.2 L 3.5-5.1 mmol/L Chloride Level 110 H 98-107 mmol/L Carbon Dioxide Level 28 20-31 mmol/L Anion Gap 7 5-15 Blood Urea Nitrogen 20 9-23 mg/dL Creatinine 0.70 0.550-1.02 mg/dL Glomerular Filtration Rate Calc 85 >90 mL/min BUN/Creatinine Ratio 28.6 H 10.0-20.0 Serum Glucose 101 74-106 mg/dL Calcium Level 10.8 H 8.7-10.4 mg/dL Triglycerides Level 83 < 150 mg/dL Cholesterol Level 100 < 200 mg/dL LDL Cholesterol 45 < 100 mg/dL HDL Cholesterol 38 L 40-59 mg/dL Thyroid Stimulating Hormone (TSH) 0.40 L 0.55-4.78 uIU/mL POC Glucose 123 H 70-106 mg/dl Current Medications Medications (Trade) Dose Ordered Sig/Evelyn Route Start Time Stop Time Status Last Admin Sodium Chloride 1,000 ml @ 75 mls/hr [id number] IV 03/16/25 14:15 03/16/25 15:04 Potassium Chloride (Klor-Con Tablet) 40 meq ONCE ONCE PO 03/16/25 14:15 03/16/25 15:01 DC 03/16/25 15:15 CHEST RADIOGRAPH : FINDINGS: The cardiac silhouette is enlarged. The lungs demonstrate bilateral patchy airspace opacities, most pronounced in the left lower lobe. The pulmonary vasculature is prominent. Small to moderate left pleural effusion. Thoracic neurostimulator leads. Postsurgical changes right rotator interval. Surgical clips in the right axillary/ lateral chest region.. There is no pneumothorax The patient was given an IV normal saline as a bolus The patient was also given potassium 40 mEq p.o. The patient's CBC is within normal limits The chemistry panel shows hypokalemia at 3.2 At this time, the patient is being admitted to the hospitalist Images Reviewed?: Images reviewed and evaluated by me Time of 1ST Reevaluation: 11:15 Reevaluation 1ST: Unchanged Patient Education/Counseling: Other (pt has dementia) Family Education/Counseling: No Family Present Departure 1 Departure Time of Disposition: 15:42 Impression: Primary Impression: Sepsis secondary to UTI Additional Impressions: Generalized weakness Autonomic dysfunction Hypokalemia Disposition: ADMITTED INPATIENT Admit to: Tele Condition: Fair Critical Care Note Critical Care Time?: Yes (45 min-critical care time only) Stability Stability form required: Yes Unstable for transfer: Telemetry monitoring (Telemetry monitoring required), ED Physician Assesment (Clinical assesment) Heart Score Heart Score: Heart Score Response (Comments) Value History N/A 0 EKG N/A 0 Age N/A 0 Risk Factors N/A 0 Troponin N/A 0 Total 0 I personally scribed for YULIANA CONTRERAS MD ([email or web address]) on 03/16/25 at 10:49. Electronically submitted by Ten Trujillo ([email or web address]). I personally scribed for YULIANA CONTRERAS MD ([email or web address]) on 03/16/25 at 11:53. Electronically submitted by Ten Trujillo ([email or web address]). YULIANA CONTRERAS MD Mar 16, 2025 10:49
[2025-03-16 11:45] LABS: Basophils # (auto) 0 10 ^3/uL (0-0.2); Basophils % (auto) 0.5 % (0.0-2.0); Eosinophils # (auto) 0.1 10 ^3/uL (0-0.8); Eosinophils % (auto) 1.6 % (0.0-7.0); Hematocrit 43.3 % (36.0-46.0); Hemoglobin 14.4 g/dL (12.2-16.2); Lymphocytes % (auto) 12.5 % (10.0-50.0); Mean Corpuscular Hemoglobin 29.7 pg (28.0-32.0); Mean Corpuscular Hgb Conc. 33.4 g/dL (32.0-36.0); Mean Corpuscular Volume 88.8 fL (80.0-100.0); Monocytes % (auto) 11.7 % (0.0-12.0); Neutrophils % (auto) 73.7 % (37.0-80.0); Nucleated Red Blood Cells % 0.2 %; Platelet Count (auto) 145 10^3/uL (140-450); Red Blood Cells 4.87 10^6/uL (4.0-5.20); Red Cell Distribution Width 15.1 % (11.8-14.3); White Blood Cell 8.2 10^3/uL (4.4-10.8)
--- NOTE | 2025-03-16 11:45 | DVH ---
CHEST RADIOGRAPH Indication: aloc Technique: Single frontal view of the chest was obtained COMPARISON: FINDINGS: The cardiac silhouette is enlarged. The lungs demonstrate bilateral patchy airspace opacities, most p ronounced in the left lower lobe. The pulmonary vasculature is prominent. Small to moderate left pleu ral effusion. Thoracic neurostimulator leads. Postsurgical changes right rotator interval. Surgical clips in the right axillary/ lateral chest region.. There is no pneumothorax. IMPRESSION: 1. As above
[2025-03-16 11:54] LABS: Sodium 145 mmol/L (136-145)
[2025-03-16 11:55] LABS: Anion Gap 7 (5-15); Carbon Dioxide 28 mmol/L (20-31)
[2025-03-16 12:00] LABS: BUN/Creatinine Ratio 28.6 (10.0-20.0); Blood Urea Nitrogen 20 mg/dL (9-23); Glucose 101 mg/dL (74-106)
[2025-03-16 12:08] LABS: Calcium 10.8 mg/dL (8.7-10.4); Chloride 110 mmol/L (98-107); Potassium 3.2 mmol/L (3.5-5.1)
[2025-03-16 13:38] VITALS: PULSE 64; RESP 16; O2SAT 95
--- NOTE | 2025-03-16 14:06 | ECG ---
[facility] Test Date: 2025-03-16 Test Time: 14:05:14 Pat Name: BARBARA LUDWIG Department: ED Room: [address] [place] [address] Gender: F Cafeteria Aide: ABIODUN : 1940 Requested By: YULIANA CONTRERAS Order Number: [id number] Reading MD: Clint Gamble Measurements Intervals [place] Rate: 63 P: -51 TX: 184 QRS: -54 QRSD: 86 T: 1 QT: 448 QTc: 459 Interpretive Statements Sinus or ectopic atrial rhythm Atrial premature complexes Inferior infarct, old Consider anterior infarct Electronically Signed On 03-16-2025 22:37:14 PDT by Clint Gamble Please click the below link to view image of tracing.
[2025-03-16] MEDS ORDERED: ONDANSETRON HCL 4 MG/2 ML VIAL IV PRN (14:15)
[2025-03-16] MEDS ORDERED: DEXTROSE (50%) 50ML SYRG IV PRN (14:15)
--- NOTE | 2025-03-16 14:35 | DVHHP2 ---
History of Present Illness Reason for Visit: aloc History of Present Illness An 85-year-old female with past medical history significant for hypertension, hyperlipidemia, diabetes, dementia, questionable atrial fibrillation and myocardial infarction, possible history of cancer, was brought to the emergency department for altered mental status and altered level of consciousness. Per EMS, the patient's daughter noted that the patient had been acting "not like herself" and appeared altered. The patient has a recent history of urinary tract infection. The daughter performed a bedside glucose check, which revealed a blood glucose of 33 mg/dL, prompting her to call EMS. On EMS arrival, glucose was 28 mg/dL. The patient was administered 10 g of glucose and transported to the ED. upon ED assessment, the patient was alert and oriented to name and date of but is a poor historian and unable to recall the events leading up to he ED presentation. Past Medical History As stated in HPI Past Surgical History Appendectomy, cholecystectomy, hysterectomy, tonsillectomy Family History Reviewed, non-contributory to the management of this case. Past Social History The patient lives at home, denies smoking, alcohol or illicit drugs abuse. Review of Systems Constitutional: Yes: Malaise; No: Fever, Chills, Sweats, Weakness, Other Eyes: No: Pain, Vision change, Conjunctivae inflammation, Eyelid inflammation, Other, Redness ENT: No: Ear pain, Ear discharge, Nose pain, Nose discharge, Nose congestion, Mouth pain, Mouth swelling, Throat pain, Throat swelling, Other Respiratory: No: Cough, Dry, Shortness of breath, SOB with excertion, Wheezing, Hemoptysis, Pleuritic Pain, Sputum, Wheezing, Other Cardiovascular: No: Chest Pain, Palpitations, Orthopnea, Paroxysmal Noc. Dyspnea, Edema, Lt Headedness, Other Genitourinary: No Dysuria, No Frequency, No Incontinence, No Hematuria, No Retention, No Other Musculoskeletal: No: other, neck pain, shoulder pain, arm pain, back pain, hand pain, leg pain, foot pain Skin: No: Rash, Lesions, Jaundice, Bruising, Other Neurological: Confusion; No: Weakness, Numbness, Incoordination, Change in speech, Seizures, Other Allergies: Coded Allergies: NO KNOWN ALLERGIES (Unverified , 11/03/24) Exam Vital Signs Vital Signs Date Time Temp Pulse Resp B/P (MAP) Pulse Ox O2 Delivery O2 Flow Rate FiO2 6/1/25 13:38 98.2 63 16 113/78 (90) 95 98.2 03/16/25 13:38 Room Air* 0 21 General Appearance: Alert, Other (only to name and date of , poor historian) HEENT: Atraumatic, PERRLA, EOMI Respiratory: Clear to auscultation, Normal air movement Cardiovascular: Regular rate, Normal S1, Normal S2 Abdominal: Normal bowel sounds, Soft, No tenderness Extremities: No clubbing, No cyanosis, No edema Skin: No rashes, No breakdown Neuro: Normal speech, Normal tone Psych/Mental Status: Other Labs/Xrays Labs Test 03/16/25 14:26 03/16/25 14:12 03/16/25 12:01 03/16/25 11:09 Range/Units Lactic Acid Level 1.4 0.4-2.0 mmol/L White Blood Count 8.2 4.4-10.8 10^3/uL Red Blood Count 4.87 4.0-5.20 10^6/uL Hemoglobin 14.4 12.2-16.2 g/dL Hematocrit 43.3 36.0-46.0 % Mean Corpuscular Volume 88.8 80.0-100.0 fL Mean Corpuscular Hemoglobin 29.7 28.0-32.0 pg Mean Corpuscular Hemoglobin Concent 33.4 32.0-36.0 g/dL Red Cell Distribution Width 15.1 H 11.8-14.3 % Platelet Count 145 140-450 10^3/uL Mean Platelet Volume 9.2 6.9-10.8 fL Neutrophils (%) (Auto) 73.7 37.0-80.0 % Lymphocytes (%) (Auto) 12.5 10.0-50.0 % Monocytes (%) (Auto) 11.7 0.0-12.0 % Eosinophils (%) (Auto) 1.6 0.0-7.0 % Basophils (%) (Auto) 0.5 0.0-2.0 % Neutrophils # (Auto) 6.0 1.6-8.6 10 ^3/uL Lymphocytes # (Auto) 1.0 0.4-5.4 10 ^3/uL Monocytes # (Auto) 1.0 0-1.3 10 ^3/uL Eosinophils # (Auto) 0.1 0-0.8 10 ^3/uL Basophils # (Auto) 0 0-0.2 10 ^3/uL Nucleated Red Blood Cells 0.2 % Sodium Level 145 136-145 mmol/L Potassium Level 3.2 L 3.5-5.1 mmol/L Chloride Level 110 H 98-107 mmol/L Carbon Dioxide Level 28 20-31 mmol/L Anion Gap 7 5-15 Blood Urea Nitrogen 20 9-23 mg/dL Creatinine 0.70 0.550-1.02 mg/dL Glomerular Filtration Rate Calc 85 >90 mL/min BUN/Creatinine Ratio 28.6 H 10.0-20.0 Serum Glucose 101 74-106 mg/dL Calcium Level 10.8 H 8.7-10.4 mg/dL Test 03/16/25 11:08 Range/Units POC Glucose 123 H 70-106 mg/dl PROCEDURE(s): CXRP - CHEST PORTABLE REASON: aloc ORDER NUMBER(s): [id number], ACCESSION NUMBER(s): [id number] CHEST RADIOGRAPH Indication: aloc Technique: Single frontal view of the chest was obtained COMPARISON: FINDINGS: The cardiac silhouette is enlarged. The lungs demonstrate bilateral patchy airspace opacities, most pronounced in the left lower lobe. The pulmonary vasculature is prominent. Small to moderate left pleural effusion. Thoracic neurostimulator leads. Postsurgical changes right rotator interval. Surgical clips in the right axillary/ lateral chest region.. There is no pneumothorax. IMPRESSION: 1. As above Assessment/Plan Assessment/Plan # acute metabolic encephalopathy and ALOC, likely due to acute hypoglycemia Admit to telemetry unit Monitor serial blood glucose level Insulin sliding scale start D5 or D10 IV fluids as needed to maintain euglycemia # altered mental status/dementia baseline versus acute delirium Likely multifactorial- hypoglycemia +possible UTI + underlying dementia CT head to rule out acute intracranial process given LOC Monitor mental status closely, variant and maintained safety # suspected UTI per daughter's report and recent history UA and urine culture pending Empiric antibiotic ceftriaxone # diabetes type 2 Insulin sliding scale check a1c # hypertension Reconcile antihypertensive medication Monitor # ?hx Afib, CAD monitor 12 leak EKG DVT prophylaxis Lovenox once CT head is negative Medical plan discussed with patient and RN Plan discussed with: Patient, Other (RN) My Orders Orders - JUAT,MARK C MANAGER FRONT OFFICE Procedure Category Date Status Time Urine Bacterial TIFFANIE 03/16/25 In Process Culture 14:12 Hemoglobin A1c LAB 03/16/25 Logged 14:12 Thyroid Stimulating LAB 03/16/25 In Process Hormone 14:12 Lipid Panel LAB 03/16/25 In Process 14:12 Carbidopa W Levodopa PHA 03/16/25 Verified Cr 25/100 (Sinemet 22:00 Gabapentin Capsule PHA 03/16/25 Verified (Neurontin Capsule) 22:00 Hydralazine Hcl PHA 03/16/25 Verified Tablet (Apresoline 22:00 Lisinopril Tablet PHA 03/17/25 Verified (Zestril Tablet) 10:00 Memantine Tablet PHA 03/16/25 Verified (Namenda Tablet) 22:00 Sertraline Hcl PHA 03/17/25 Verified (Zoloft) 10:00 Sucralfate Tab PHA 03/16/25 Verified (Carafate Tab) 22:00 (Nf) Amlodipine PHA 03/17/25 Verified Besylate 10:00 (Nf) Atorvastatin PHA 03/17/25 Verified Calcium 10:00 (Nf) Donepezil PHA 03/16/25 Verified Hydrochloride 22:00 (Nf) Folic Acid PHA 03/17/25 Verified 07:00 (Nf) Gabapentin PHA 03/16/25 Verified 22:00 Glucose Blood PHA 03/16/25 Verified (Accu-Chek Comfort 17:00 Mild Sliding Scale PHA 03/16/25 Verified 17:00 Dextrose 50% Syringe PHA 03/16/25 Verified 14:15 NS PHA 03/16/25 Verified 14:15 Potassium Er Tablet PHA 03/16/25 Verified (Klor-Con Tablet) 14:15 Admit ADMIT 03/16/25 Verified 14:15 Code Status CODE 03/16/25 Verified 14:15 Ondansetron Hcl PHA 03/16/25 Verified (Zofran) 14:15 Enoxaparin Sodium PHA 03/17/25 Verified (Lovenox) 10:00 Fall Risk Precautions LAURA 03/16/[address] 14:15 Complete Blood Count LAB 03/17/25 Verified 04:00 Comprehensive LAB 03/17/25 Verified Metabolic Panel 04:00 Cardiac DIET 03/16/25 Verified Diet-2gna,Lofat,Lochol Dinner Condition: Fair LAURA 03/16/25 Verified 14:15 Date of Service: Mar 16, 2025 Billing Provider: MARK IBARRA Common Visit Codes: [id number] INP/OBS CARE (HIGH) MARK IBARRA Mar 16, 2025 14:35
[2025-03-16 14:41] LABS: Triglycerides 83 mg/dL (< 150)
[2025-03-16 14:42] LABS: LDL Cholesterol 45 mg/dL (< 100)
[2025-03-16 14:43] LABS: Cholesterol 100 mg/dL (< 200)
[2025-03-16 14:44] LABS: HDL Cholesterol 38 mg/dL (40-59)
[2025-03-16 14:45] LABS: Urine Bacteria FEW /hpf (None Seen); Urine Blood Negative /uL (Negative); Urine Protein, UAD TRACE (Negative); Urine Specific Gravity 1.009 (1.001-1.035); Urine Squamous Epithelial Cell FEW /hpf (<5); Urine Urobilinogen Normal (Negative); Urine WBC 156 /HPF (0-5); Urine pH 7.5 (5.0-9.0)
[2025-03-16 14:46] LABS: Urine Clarity Hazy (Clear); Urine Color Light-Yellow (Yellow)
[2025-03-16] MEDS: SODIUM CHLORIDE 0.9% 1,000 ML IV SCH (15:04)
[2025-03-16] MEDS: cefTRIAXone 1GM/50ML D5W 50 ML IV ONE ×2 (15:11)
[2025-03-16] MEDS: POTASSIUM CHL 20 Meq TABLET PO ONE (15:15)
--- NOTE | 2025-03-16 15:29 | DVH ---
CLINICAL INFORMATION: Acute loss of consciousness. TECHNIQUE: Axial imaging was obtained through the brain without contrast. Coronal and sagittal reform atted images were obtained, reviewed, and stored. Images were reviewed in brain and bone windows. Al l CT scans at this medical facility are performed using dose modulation techniques as appropriate to a performed exam including the following: Automated exposure control was utilized; adjustment of the MA and/or KV according to patient size; and use of iterative reconstruction technique. CTDIvol = 56.3 8 mGy DLP = 998.31 mGy-cm COMPARISON: CT HEAD WITHOUT CONTRAST on DOS: 11/03/24 FINDINGS: There is no acute intracranial hemorrhage. No mass effect or midline shift. Scattered areas of hypoattenuation are seen in the periventricular and subcortical white matter, which are nonspecif ic but most likely sequelae of small vessel ischemic disease. The ventricles and sulci are within nor mal limits in size for age. Basal cisterns are patent. The calvarium is unremarkable. Partial opacif ication of the left maxillary sinus. Mild partial opacification of the mastoid air cells bilaterally. IMPRESSION: 1. No CT evidence of acute intracranial abnormality. 2. Nonacute findings as described above. 3. Partial opacification of the mastoid air cells, may be due to effusions. Correlate clinically to exclude mastoiditis.
[2025-03-16] MEDS: InsuLIN REG 1unit/0.01ml Soln (100units/ml) SC SCH (17:31)
[2025-03-16] MEDS: ACCU-CHEK COMFORT CURVE STRIP VI SCH (17:31)
[2025-03-16] MEDS ORDERED: PATIENTS OWN MEDICATION (Donepezil Hydrochloride (Donepezil Hcl) 1 TAB) PO SCH (22:00)
[2025-03-16] MEDS ORDERED: GABAPENTIN 100 MG CAP PO SCH (22:00)
[2025-03-16] MEDS ORDERED: PATIENTS OWN MEDICATION (Gabapentin 1 TAB) PO SCH (22:00)
[2025-03-16] MEDS: ATORVASTATIN 20 MG TAB PO SCH (22:12)
[2025-03-16] MEDS: SUCRALFATE 1 GM TAB PO SCH (22:12)
[2025-03-16] MEDS: DONEPEZIL HYDROCHLORIDE 5 MG TAB PO SCH (22:12)
[2025-03-16] MEDS: hydrALAZINE HCL 25 MG TAB PO SCH (22:13)
[2025-03-16] MEDS: MEMANTINE HCL 5 MG TAB PO SCH (22:13)
[2025-03-16 22:30] VITALS: BP 154/79; PULSE 74; RESP 19; TEMP 98; O2SAT 97
[2025-03-16] MEDS: CARBIDOPA W LEVODOPA CR 25/100mg TABLET PO SCH (22:49)
[2025-03-17] VITALS (8 sets, daily range): BP systolic 127–173; BP diastolic 52–78; PULSE 60–98; RESP 17–18; TEMP 97–98.3; O2SAT 94–97
[2025-03-17 06:50] LABS: Basophils # (auto) 0 10 ^3/uL (0-0.2); Basophils % (auto) 0.5 % (0.0-2.0); Eosinophils # (auto) 0.1 10 ^3/uL (0-0.8); Eosinophils % (auto) 1.2 % (0.0-7.0); Hematocrit 43.3 % (36.0-46.0); Hemoglobin 14.3 g/dL (12.2-16.2); Lymphocytes # (auto) 0.8 10 ^3/uL (0.4-5.4); Lymphocytes % (auto) 10.9 % (10.0-50.0); Mean Corpuscular Hemoglobin 29.8 pg (28.0-32.0); Mean Corpuscular Hgb Conc. 33.1 g/dL (32.0-36.0); Monocytes # (auto) 0.9 10 ^3/uL (0-1.3); Monocytes % (auto) 11.8 % (0.0-12.0); Neutrophils # (auto) 5.6 10 ^3/uL (1.6-8.6); Neutrophils % (auto) 75.6 % (37.0-80.0); Platelet Count (auto) 178 10^3/uL (140-450); Red Blood Cells 4.81 10^6/uL (4.0-5.20); Red Cell Distribution Width 15.2 % (11.8-14.3); White Blood Cell 7.4 10^3/uL (4.4-10.8)
[2025-03-17] MEDS ORDERED: PATIENTS OWN MEDICATION (Folic Acid 1 TAB) PO SCH (07:00)
[2025-03-17 07:21] LABS: Alanine Aminotransferase 17 U/L (7-40); Albumin 3.4 g/dL (3.2-4.8); Alkaline Phosphatase 96 U/L (46-116); Anion Gap 10 (5-15); Aspartate Aminotransferase 29 U/L (13-40); BUN/Creatinine Ratio 19.7 (10.0-20.0); Blood Urea Nitrogen 13 mg/dL (9-23); Carbon Dioxide 26 mmol/L (20-31); Chloride 108 mmol/L (98-107); Glucose 126 mg/dL (74-106); Potassium 3.3 mmol/L (3.5-5.1); Sodium 144 mmol/L (136-145)
[2025-03-17 07:22] LABS: Bilirubin, Total 0.5 mg/dL (0.2-1.0); Total Protein 5.5 g/dL (5.7-8.2)
[2025-03-17] MEDS: FOLIC ACID 1 MG TAB PO SCH (08:23)
[2025-03-17] MEDS: SERTRALINE HCL 50 MG TAB PO SCH (08:24)
[2025-03-17] MEDS: LISINOPRIL 20 MG TAB PO SCH (08:25)
[2025-03-17] MEDS: amLODIPine BESYLATE 5 MG TAB PO SCH (08:25)
[2025-03-17] MEDS: ENOXAPARIN SOD 40 MG/0.4 ML SYRINGE SC SCH (08:26)
[2025-03-17] MEDS: cefTRIAXone 1GM/50ML D5W 50 ML IV SCH (08:26)
[2025-03-17] MEDS ORDERED: PATIENTS OWN MEDICATION (Atorvastatin Calcium 20 MG) PO SCH (10:00)
[2025-03-17] MEDS ORDERED: PATIENTS OWN MEDICATION (Amlodipine Besylate 1 TAB) PO SCH (10:00)
[2025-03-17] MEDS: OXYCODONE W/ ACETAMINOPHEN 5/325MG TABLET PO PRN (13:47)
[2025-03-17] MEDS: MAGNESIUM OXIDE 400 MG TAB PO ONE (13:48)
[2025-03-17] MEDS: cloNIDine HCL 0.1 MG TAB PO ONE (13:49)
[2025-03-17] MEDS: CEFEPIME 1GM/ 50ML 50 ML IV SCH (13:49)
--- NOTE | 2025-03-17 14:33 | DVHPN2 ---
Subjective Patient seen and examined at bedside, patient's daughters also present at bedside. Patient does have a history of dementia. We will continue IV antibiotics for UTI. Per daughter mental status is improving to baseline. Changes from previous H/P or p: No Changes Eyes: No Pain, No Vision change, No Conjunctivae inflammation, No Eyelid inflammation, No Other, No Redness ENT: No Ear pain, No Ear discharge, No Nose pain, No Nose discharge, No Nose congestion, No Mouth pain, No Mouth swelling, No Throat pain, No Throat swelling, No Other Cardiovascular: No Chest Pain, No Palpitations, No Orthopnea, No Paroxysmal Noc. Dyspnea, No Edema, No Lt Headedness, No Other Respiratory: No Cough, No Dry, No Shortness of breath, No SOB with excertion, No Wheezing, No Hemoptysis, No Pleuritic Pain, No Sputum, No Other Genitourinary: No Dysuria, No Frequency, No Incontinence, No Hematuria, No Retention, No Other Musculoskeletal: No other, No neck pain, No shoulder pain, No arm pain, No back pain, No hand pain, No leg pain, No foot pain Skin: No Rash, No Lesions, No Jaundice, No Bruising, No Other Objective Vitals Vital Signs Date Time Temp Pulse Resp B/P (MAP) Pulse Ox O2 Delivery O2 Flow Rate FiO2 03/17/25 13:49 186/92 03/17/25 08:38 98.1 98 18 94 98.1 03/17/25 07:30 Room Air* 0 21 Intake/Output Intake and Output 03/17/25 07:00 Intake Total 700 ml Balance 700 ml Intake Oral 250 ml IV Total 450 ml # Voids 1 # Bowel Movements 1 General Appearance: Alert, Cooperative, Other (Confused at times) HEENT: Atraumatic Lungs: Clear to auscultation Cardiovascular: Regular rate, Normal S1, Normal S2 Abdomen: Normal bowel sounds, Soft Psych/Mental Status: Mental status NL Medications Current Medications Medications Dose Ordered Sig/Evelyn Route Start Time Stop Time Status Last Admin Dose Admin Carbidopa/Levodopa 1 tab TID PO 03/16/25 22:00 03/17/25 05:59 1 TAB Gabapentin 100 mg TID PO 03/16/25 22:00 Hold Hydralazine HCl 25 mg BID PO 03/16/25 22:00 03/17/25 08:24 25 MG Lisinopril 20 mg DAILY PO 03/17/25 10:00 03/17/25 08:25 20 MG Memantine 5 mg BID PO 03/16/25 22:00 03/17/25 08:24 5 MG Sertraline HCl 50 mg DAILY PO 03/17/25 10:00 03/17/25 08:24 50 MG Sucralfate 1 gm BID PO 03/16/25 22:00 03/17/25 08:24 1 GM Patient Own Medication 1 tab DAILY PO 03/17/25 10:00 UNV Patient Own Medication 20 mg DAILY PO 03/17/25 10:00 UNV Patient Own Medication 1 tab HS PO 03/16/25 22:00 UNV Patient Own Medication 1 tab QAM PO 03/17/25 07:00 UNV Patient Own Medication 1 tab HS PO 03/16/25 22:00 UNV Diagnostic Test (Pha) 1 strip ACHS 03/16/25 17:00 03/17/25 10:47 1 STRIP Insulin Human Regular ACHS SC 03/16/25 17:00 03/17/25 10:52 2 UNITS Dextrose 50 ml UD PRN IV 03/16/25 14:15 Ondansetron HCl 4 mg Q4HP PRN IV 03/16/25 14:15 Enoxaparin Sodium 40 mg DAILY SC 03/17/25 10:00 03/17/25 08:26 40 MG Amlodipine Besylate 10 mg DAILY PO 03/17/25 10:00 03/17/25 08:25 10 MG Atorvastatin Calcium 10 mg HS PO 03/16/25 22:00 03/16/25 22:12 10 MG Folic Acid 1 mg DAILY PO 03/17/25 10:00 03/17/25 08:23 1 MG Donepezil HCl 10 mg HS PO 03/16/25 22:00 03/16/25 22:12 10 MG Gabapentin 600 mg HS PO 03/16/25 22:00 Hold Cefepime HCl 50 ml @ 12.5 mls/hr Q8HR IV 03/17/25 14:00 03/17/25 13:49 12.5 MLS/HR Oxycodone/ Acetaminophen 2 tab Q6HP PRN PO 03/17/25 13:30 03/17/25 13:47 2 TAB Laboratory Results Laboratory Tests 03/17/25 04:45 Chemistry Test 03/17/25 04:45 Albumin 3.4 g/dL (3.2-4.8) Calcium Level 10.0 mg/dL (8.7-10.4) Total Protein 5.5 g/dL (5.7-8.2) L LFT Test 03/17/25 04:45 Alanine Aminotransferase (ALT) 17 U/L (7-40) Alkaline Phosphatase 96 U/L (46-116) Aspartate Amino Transferase (AST) 29 U/L (13-40) Total Bilirubin 0.5 mg/dL (0.2-1.0) HgA1c, TSH Test 03/16/25 14:39 Hemoglobin A1c 4.4 % A1C (<5.7) Urinalysis Test 03/16/25 14:26 Urine Color Light-yellow (Yellow) Urine Clarity Hazy (Clear) H Urine pH 7.5 (5.0-9.0) Urine Specific [place] 1.009 (1.001-1.035) Urine Protein Trace (Negative) H Urine Ketones Negative (Negative) Urine Blood Negative /uL (Negative) Urine Nitrite Negative (Negative) Urine Bilirubin Negative (Negative) Urine Urobilinogen Normal mg/dL (Negative) Urine Leukocyte Esterase 3+ /uL (Negative) Urine RBC 1 /hpf (0 - 4) Urine Microscopic WBC 156 /HPF (0-5) H Urine Squamous Epithelial Cells Few /hpf (<5) Urine Bacteria Few /hpf (None Seen) H Urine Glucose Normal mg/dL (Normal) Microbiology Microbiology Date/Time Source Procedure Growth Status 03/16/25 14:26 Voided Urine Urine Culture - Preliminary Resulted 03/16/25 12:16 Blood Blood Culture - Preliminary NO GROWTH AFTER 24 HOURS OF INCUBATION. Resulted Assessment/Plan Assessment/Plan # acute metabolic encephalopathy and ALOC, likely due to acute hypoglycemia vs UTI Stop all Diabetes Meds # Dementia baseline versus acute delirium Likely multifactorial- hypoglycemia +possible UTI + underlying dementia CT head to rule out acute intracranial process given LOC Monitor mental status closely, variant and maintained safety # Acute Cystitis UA and urine culture pending Cefepime # diabetes type 2 Insulin sliding scale check a1c 4.4 # hypertension Reconcile antihypertensive medication Monitor # ?hx Afib, CAD monitor DVT prophylaxis Lovenox once CT head is negative Medical plan discussed with patient and RN Plan discussed with: Patient, Daughter My Orders Orders - AKI RUST MD Procedure Category Date Status Time Cefepime 1gm/ 50ml PHA 03/17/25 In Process (Maxipime 1gm/50ml) 14:00 Potassium Chloride PHA 03/17/25 In Process (Potassium Chloride). 13:15 Discontinue Tele LAURA 03/17/25 In Process 13:12 Oxycodone W/ Acet PHA 03/17/25 In Process 5/325mg Tab (Percocet 13:30 Date of Service: Mar 17, 2025 Billing Provider: AKI RUST MD Common Visit Codes: [id number] INP/OBS CARE(HIGH) AKI RUST MD Mar 17, 2025 14:33
[2025-03-17] MEDS: POTASSIUM CHLORIDE 40 MEQ, LIDOCAINE 1% (LOCAL ANESTH.) 4 ML in SODIUM CHL 0.9% 250 ML IV ONE (19:58)
[2025-03-18] VITALS (8 sets, daily range): BP systolic 93–161; BP diastolic 67–89; PULSE 63–79; RESP 18–19; TEMP 97.4–98; O2SAT 94–97
--- NOTE | 2025-03-18 17:05 | DVHPN2 ---
Subjective Patient seen and examined at bedside, Spoke with the daughter on the phone. Patient is improving. Possible DC in AM Changes from previous H/P or p: No Changes Eyes: No Pain, No Vision change, No Conjunctivae inflammation, No Eyelid inflammation, No Other, No Redness ENT: No Ear pain, No Ear discharge, No Nose pain, No Nose discharge, No Nose congestion, No Mouth pain, No Mouth swelling, No Throat pain, No Throat swelling, No Other Cardiovascular: No Chest Pain, No Palpitations, No Orthopnea, No Paroxysmal Noc. Dyspnea, No Edema, No Lt Headedness, No Other Respiratory: No Cough, No Dry, No Shortness of breath, No SOB with excertion, No Wheezing, No Hemoptysis, No Pleuritic Pain, No Sputum, No Other Genitourinary: No Dysuria, No Frequency, No Incontinence, No Hematuria, No Retention, No Other Musculoskeletal: No other, No neck pain, No shoulder pain, No arm pain, No back pain, No hand pain, No leg pain, No foot pain Skin: No Rash, No Lesions, No Jaundice, No Bruising, No Other Objective Vitals Vital Signs Date Time Temp Pulse Resp B/P (MAP) Pulse Ox O2 Delivery O2 Flow Rate FiO2 03/18/25 12:58 98.0 71 18 147/72 (97) 96 98.0 03/18/25 08:00 Room Air* 0 21 Intake/Output Intake and Output 03/18/25 07:00 Intake Total 970 ml Output Total 2976 ml Balance -2006 ml Intake Oral 550 ml IV Total 420 ml Output Urine Total 2975 ml Stool Total 1 ml General Appearance: Alert, Cooperative, Other (Confused at times) HEENT: Atraumatic Lungs: Clear to auscultation Cardiovascular: Regular rate, Normal S1, Normal S2 Abdomen: Normal bowel sounds, Soft Psych/Mental Status: Mental status NL Medications Current Medications Medications Dose Ordered Sig/Evelyn Route Start Time Stop Time Status Last Admin Dose Admin Carbidopa/Levodopa 1 tab TID PO 03/16/25 22:00 03/18/25 13:16 1 TAB Hydralazine HCl 25 mg BID PO 03/16/25 22:00 03/17/25 21:35 25 MG Lisinopril 20 mg DAILY PO 03/17/25 10:00 03/17/25 08:25 20 MG Memantine 5 mg BID PO 03/16/25 22:00 03/18/25 09:06 5 MG Sertraline HCl 50 mg DAILY PO 03/17/25 10:00 03/18/25 09:07 50 MG Sucralfate 1 gm BID PO 03/16/25 22:00 03/18/25 09:06 1 GM Patient Own Medication 1 tab DAILY PO 03/17/25 10:00 UNV Patient Own Medication 20 mg DAILY PO 03/17/25 10:00 UNV Patient Own Medication 1 tab HS PO 03/16/25 22:00 UNV Patient Own Medication 1 tab QAM PO 03/17/25 07:00 UNV Patient Own Medication 1 tab HS PO 03/16/25 22:00 UNV Diagnostic Test (Pha) 1 strip ACHS 03/16/25 17:00 03/18/25 11:26 1 STRIP Insulin Human Regular ACHS SC 03/16/25 17:00 03/18/25 11:34 4 UNITS Dextrose 50 ml UD PRN IV 03/16/25 14:15 Ondansetron HCl 4 mg Q4HP PRN IV 03/16/25 14:15 Enoxaparin Sodium 40 mg DAILY SC 03/17/25 10:00 03/18/25 09:07 40 MG Amlodipine Besylate 10 mg DAILY PO 03/17/25 10:00 03/17/25 08:25 10 MG Atorvastatin Calcium 10 mg HS PO 03/16/25 22:00 03/17/25 21:36 10 MG Folic Acid 1 mg DAILY PO 03/17/25 10:00 03/18/25 09:05 1 MG Donepezil HCl 10 mg HS PO 03/16/25 22:00 03/17/25 21:35 10 MG Gabapentin 600 mg HS PO 03/16/25 22:00 Cefepime HCl 50 ml @ 12.5 mls/hr Q8HR IV 03/17/25 14:00 03/18/25 13:16 12.5 MLS/HR Oxycodone/ Acetaminophen 2 tab Q6HP PRN PO 03/17/25 13:30 03/17/25 13:47 2 TAB Laboratory Results Laboratory Tests 03/17/25 04:45 Urinalysis Test 03/16/25 14:26 Urine Color Light-yellow (Yellow) Urine Clarity Hazy (Clear) H Urine pH 7.5 (5.0-9.0) Urine Specific [place] 1.009 (1.001-1.035) Urine Protein Trace (Negative) H Urine Ketones Negative (Negative) Urine Blood Negative /uL (Negative) Urine Nitrite Negative (Negative) Urine Bilirubin Negative (Negative) Urine Urobilinogen Normal mg/dL (Negative) Urine Leukocyte Esterase 3+ /uL (Negative) Urine RBC 1 /hpf (0 - 4) Urine Microscopic WBC 156 /HPF (0-5) H Urine Squamous Epithelial Cells Few /hpf (<5) Urine Bacteria Few /hpf (None Seen) H Urine Glucose Normal mg/dL (Normal) Microbiology Microbiology Date/Time Source Procedure Growth Status 03/16/25 14:26 Voided Urine Urine Culture - Final Klebsiella oxytoca Complete 03/16/25 12:16 Blood Blood Culture - Preliminary NO GROWTH AFTER 48 HOURS OF INCUBATION. Resulted Assessment/Plan Assessment/Plan # acute metabolic encephalopathy and ALOC, likely due to acute hypoglycemia vs UTI Stop all Diabetes Meds # Dementia baseline versus acute delirium Likely multifactorial- hypoglycemia +possible UTI + underlying dementia CT head to rule out acute intracranial process given LOC Monitor mental status closely, variant and maintained safety # Acute Cystitis UA and urine culture pending Cefepime # diabetes type 2 Insulin sliding scale check a1c 4.4 # hypertension Reconcile antihypertensive medication Monitor # ?hx Afib, CAD monitor DVT prophylaxis Lovenox once CT head is negative Medical plan discussed with patient and RN Plan discussed with: Patient, Daughter My Orders Orders - AKI RUST MD Procedure Category Date Status Time Pt Request For Service PT 03/18/25 Logged 13:58 Date of Service: Mar 18, 2025 Billing Provider: AKI RUST MD Common Visit Codes: [id number] INP/OBS CARE(MOD) AKI RUST MD Mar 18, 2025 17:05
[2025-03-18] MEDS: GABAPENTIN 300 MG CAP PO SCH (21:25)
[2025-03-19] VITALS (7 sets, daily range): BP systolic 149–168; BP diastolic 61–80; PULSE 61–80; RESP 18; TEMP 97.7–97.9; O2SAT 94–96
[2025-03-19] MEDS ORDERED: CIPR500T4 PO (13:42)
--- NOTE | 2025-03-19 17:45 | DVHDS2 ---
Discharge Summary Date of Admission Mar 16, 2025 at 14:15 Date of Discharge: Mar 19, 2025 Labs/Diagnostic Data: Laboratory Results Test 03/19/25 11:05 03/17/25 04:45 03/16/25 14:39 03/16/25 14:26 POC Glucose 260 mg/dl (70-106) White Blood Count 7.4 10^3/uL (4.4-10.8) Red Blood Count 4.81 10^6/uL (4.0-5.20) Hemoglobin 14.3 g/dL (12.2-16.2) Hematocrit 43.3 % (36.0-46.0) Mean Corpuscular Volume 90.0 fL (80.0-100.0) Mean Corpuscular Hemoglobin 29.8 pg (28.0-32.0) Mean Corpuscular Hemoglobin Concent 33.1 g/dL (32.0-36.0) Red Cell Distribution Width 15.2 % (11.8-14.3) Platelet Count 178 10^3/uL (140-450) Mean Platelet Volume 8.9 fL (6.9-10.8) Neutrophils (%) (Auto) 75.6 % (37.0-80.0) Lymphocytes (%) (Auto) 10.9 % (10.0-50.0) Monocytes (%) (Auto) 11.8 % (0.0-12.0) Eosinophils (%) (Auto) 1.2 % (0.0-7.0) Basophils (%) (Auto) 0.5 % (0.0-2.0) Neutrophils # (Auto) 5.6 10 ^3/uL (1.6-8.6) Lymphocytes # (Auto) 0.8 10 ^3/uL (0.4-5.4) Monocytes # (Auto) 0.9 10 ^3/uL (0-1.3) Eosinophils # (Auto) 0.1 10 ^3/uL (0-0.8) Basophils # (Auto) 0 10 ^3/uL (0-0.2) Nucleated Red Blood Cells 0.0 % Sodium Level 144 mmol/L (136-145) Potassium Level 3.3 mmol/L (3.5-5.1) Chloride Level 108 mmol/L (98-107) Carbon Dioxide Level 26 mmol/L (20-31) Anion Gap 10 (5-15) Blood Urea Nitrogen 13 mg/dL (9-23) Creatinine 0.66 mg/dL (0.550-1.02) Glomerular Filtration Rate Calc 86 mL/min (>90) BUN/Creatinine Ratio 19.7 (10.0-20.0) Serum Glucose 126 mg/dL (74-106) Calcium Level 10.0 mg/dL (8.7-10.4) Total Bilirubin 0.5 mg/dL (0.2-1.0) Aspartate Amino Transferase (AST) 29 U/L (13-40) Alanine Aminotransferase (ALT) 17 U/L (7-40) Alkaline Phosphatase 96 U/L (46-116) Total Protein 5.5 g/dL (5.7-8.2) Albumin 3.4 g/dL (3.2-4.8) Hemoglobin A1c 4.4 % A1C (<5.7) Urine Color Light-yellow (Yellow) Urine Clarity Hazy (Clear) Urine pH 7.5 (5.0-9.0) Urine Specific [place] 1.009 (1.001-1.035) Urine Protein Trace (Negative) Urine Ketones Negative (Negative) Urine Blood Negative /uL (Negative) Urine Nitrite Negative (Negative) Urine Bilirubin Negative (Negative) Urine Urobilinogen Normal mg/dL (Negative) Urine Leukocyte Esterase 3+ /uL (Negative) Urine RBC 1 /hpf (0 - 4) Urine Microscopic WBC 156 /HPF (0-5) Urine Squamous Epithelial Cells Few /hpf (<5) Urine Bacteria Few /hpf (None Seen) Urine Glucose Normal mg/dL (Normal) Test 03/16/25 12:01 03/16/25 11:09 Lactic Acid Level 1.4 mmol/L (0.4-2.0) Triglycerides Level 83 mg/dL (< 150) Cholesterol Level 100 mg/dL (< 200) LDL Cholesterol 45 mg/dL (< 100) HDL Cholesterol 38 mg/dL (40-59) Thyroid Stimulating Hormone (TSH) 0.40 uIU/mL (0.55-4.78) Other Laboratory Tests 03/17/25 04:45 Brief Hx & Hospital Course: An 85-year-old female with past medical history significant for hypertension, hyperlipidemia, diabetes, dementia, questionable atrial fibrillation and myocardial infarction, possible history of cancer, was brought to the emergency department for altered mental status and altered level of consciousness. Per EMS, the patient's daughter noted that the patient had been acting "not like herself" and appeared altered. The patient has a recent history of urinary tract infection. The daughter performed a bedside glucose check, which revealed a blood glucose of 33 mg/dL, prompting her to call EMS. On EMS arrival, glucose was 28 mg/dL. The patient was administered 10 g of glucose and transported to the ED. upon ED assessment, the patient was alert and oriented to name and date of but is a poor historian and unable to recall the events leading up to he ED presentation. Her symptoms imrproved and less confusion, but seem at baseline with dementia Condition at Discharge: Good Final Diagnosis/Problems List # UTI # acute metabolic encephalopathy and ALOC, likely due to acute hypoglycemia vs UTI # Dementia baseline versus acute delirium # Acute Cystitis # diabetes type 2 # hypertension # ?hx Afib, CAD Discharge Disposition: Home Discharge Instruct/Medications Diet: Regular Activity: No Restrictions, As Tolerated Follow Up/Referral: PCP in 7 days Medications: ciprofloxacin, home medications Discharge Statement: "Patient was advised to return to the ER or call 911 if any headaches, dizziness, shortness of breath, chest pain, abdominal pain, bleeding, fevers, or worsening of medical condition. Patient was counseled about treatment plan, medications, possible side effects, patientverbalized understanding. All questions were answered to the best of my ability. This discharge took greater then 30 minutes in planning, reviewing documentation, counseling the patient, and discussing with other team members." ASSESSMENT ASSESSMENT Assessment UTI Date of Service: Mar 19, 2025 Billing Provider: KAREN HOFFMAN MD Common Visit Codes: 55080-YNQ/OBS DISCH DAY >30min KAREN HOFFMAN MD Mar 19, 2025 17:45
== END 2025-03-19 20:40 | disposition home or self-care (01) | DRG 637 ==
LOC: EDBD 10:31 → ER 10:31 → OVERFLOW 14:15 → TELE-WESTW 22:30 → WEST WING 03-17 22:12
PROVIDERS: ADMIT Hospitalist; ATTEND Hospitalist
DX: E11.649 Type 2 diabetes mellitus with hypoglycemia without coma (principal); G93.41 Metabolic encephalopathy; N30.00 Acute cystitis without hematuria; E66.9 Obesity, unspecified; I10 Essential (primary) hypertension; F03.90 Unspecified dementia, unspecified severity, without behavioral disturbance, psychotic disturbance, mood disturbance, and anxiety; E87.6 Hypokalemia; G90.89 Other disorders of autonomic nervous system; E78.5 Hyperlipidemia, unspecified; I25.10 Atherosclerotic heart disease of native coronary artery without angina pectoris; I48.91 Unspecified atrial fibrillation; Z90.710 Acquired absence of both cervix and uterus; Z87.440 Personal history of urinary (tract) infections; Z68.32 Body mass index [BMI] 32.0-32.9, adult
CPT/HCPCS: 36415; 70450; 71045; 80048; 80053; 80061; 81001; 82962; 83036; 83605; 84443; 85025; 87040; 87086; 87088; 87186; 93005; 96365; 97163; 99291; G0378; J1815; J2003